=== PATIENT | female | born 1955 | race Caucasian/White ===

== ENCOUNTER 2018-01-26 06:38 | Emergency (ER) | payer MEDICAID, SELFPAY ==
[2018-01-26 06:39] VITALS: BP 168/56; PULSE 96; RESP 17; TEMP 36.6; O2SAT 96; BMI 17.4
--- NOTE | 2018-01-26 07:08 | CT_ITS ---
STUDY: CT ABDOMEN AND PELVIS WITHOUT CONTRAST REASON FOR EXAM: Female, 63 years old. Rectal bleeding with history of colon cancer RADIATION DOSAGE (If Supplied By Facility): CTDIvol = ( 6.10 ) mGy, DLP = ( 280.25 ) mGycm TECHNIQUE: Transaxial images were obtained from the dome of the diaphragm to the symphysis pubis without oral contrast, and without intravenous contrast. Sagittal and coronal images were reconstructed. Individualized dose optimization techniques were used for this CT. COMPARISON: None. FINDINGS: The lung bases demonstrate no evidence for consolidative process. Subtle wall thickening of the distal esophagus. Prominent pericardiac lymph nodes noted. There is nodularity in the omentum noted suggestive of omental caking with metastatic deposits. Scattered nodules in the mesentery also seen. Uncomplicated colonic diverticulosis. Small amount of free fluid in the pelvis. Postsurgical changes in the colonic loops with right-sided hemicolectomy The adrenal glands and the pancreas are grossly within normal limits. Heterogeneous density nodules overlying the liver capsule. The spleen appears unremarkable. Kidneys demonstrate no evidence for obstructing stones. Right-sided dobe-iu-yhhhxyvl hydronephrosis noted with changing caliber of the ureter proximally. Degenerative changes in the lumbar spine Small sclerotic density in the right iliac bone. Metastatic disease is a diagnostic consideration. Please consider nuclear medicine bone scan CT/Abdomen/Pelvis without Cont IMPRESSION: Status post right-sided hemicolectomy with multiple nodular densities in the omentum as well as the peritoneum suggestive of omental and peritoneal metastatic deposits. Mild to moderate right-sided hydronephrosis with mild dilatation of the proximal ureter. Extrinsic compression or with adhesions or adjacent vessel cannot be excluded. Nuclear medicine renal scan is suggested for assessment. Small sclerotic density in the right iliac bone possibly metastases. Electronically Signed: Royal Benítez, at 8:33 EST Tel , Service support ,
[2018-01-26] MEDS: 0.9% Normal Saline 1,000 ML 125 ML IV (07:20)
[2018-01-26 07:22] LABS: Absolute Lymphocyte Count 1.12 X10^3/ul (0.83-4.51); Absolute Neutrophil Count 5.2 X10^3/uL (2.0-7.7); Basophil# 0.05 X10^3/uL; Basophil% 0.7 % (0-1); Eosinophil# 0.12 X10^3/uL; Eosinophils% 1.7 % (0-5); Hematocrit 42.1 % (37-47); Hemoglobin 13.9 g/dl (12.0-15.0); Lymphocyte # 1.12 X10^3/ul (4.0); Lymphocyte % 15.4 % (19-41); Mean Corpuscular Hgb 30.8 pg (27.0-32.0); Mean Corpuscular Volume 93.3 fL (81-99); Mean Platelet Vol. 10.4 fl (6.2-12.0); Monocyte# 0.79 X10^3/uL; Monocyte% 10.9 % (0-10); Neutrophil # 5.17 X10^3/uL (2.7-7.7); Neutrophil % 71.2 % (47-70); POSITIVE COUNT NO; POSITIVE DIFFERENTIAL NO; POSITIVE MORPHOLOGY NO; Platelet Count 331 K/mm3 (150-450); RBC Distribution Width CV 12.8 % (11.6-14.6); RBC Distribution Width SD 43.2 fl (35.1-43.9); Red Blood Count 4.51 M/mm3 (4.2-5.4); White Blood Count 7.3 K/mm3 (4.4-11.0)
[2018-01-26 07:38] LABS: ALB/GLOB Ratio 0.8 RATIO (0.9-2.4); AST(SGOT) 21 U/L (15-37); Alanine Aminotransfer ALT/SGPT 25 U/L (13-56); Albumin, Serum 3.4 g/dL (3.2-5.0); Alkaline Phosphatase 229 U/L (45-117); Anion Gap 9 (5-15); BUN 16 mg/dL (7-18); BUN/Creat Ratio 17.1 RATIO (10-20); Calcium,Total 9.3 mg/dL (8.5-10.1); Chloride 104 mmol/L (98-107); Creatinine, Serum 0.94 mg/dL (0.55-1.02); EST Glomerular Filtration Rate 64 mL/min (>60); Est Glom Filt Rate - Afr Amer 77 mL/min (>60); Estimated Creatinine Clearance 51.07 ml/min; Globulin 4.1 g/dL (2.2-4.2); Glucose 98 mg/dL (74-106); Lipase 159 U/L (73-393); Potassium 3.8 mmol/L (3.5-5.1); Protein, Total 7.5 g/dL (6.4-8.2); Sodium Level 137 mmol/L (136-145)
[2018-01-26 07:43] LABS: Bacteria 0 SEEN /hpf (None Seen); Mucous, Urine 0 SEEN /hpf (<or=2+); White Blood Cells 0 SEEN /hpf (0-5)
[2018-01-26 07:45] LABS: Color, Urine Yellow (Yellow); Glucose, Dipstick Normal (Normal); Ketone-Dipstick Negative (Negative); Leukocyte Esterase-Dipstick 25 /ul (Negative); Nitrite-Dipstick Negative (Negative); Occult Blood-Urine 25 /ul (Negative); Protein-Dipstick Negative (Negative); Urine Bilirubin Dipstick Negative (Negative); Urine Clarity Clear (Clear); Urine Urobilinogen Normal (Normal); Urine pH 6.5 (5.0 - 8.0)
[2018-01-26 07:55] LABS: Red Blood Cells-Urine 0-5 SEEN /hpf (0-5); Squamous Epithelial Cells - UA 0-5 SEEN /hpf (5-10)
[2018-01-26 08:15] VITALS: BP 121/81; BP 138/68; BP 139/76; PULSE 78; PULSE 80; PULSE 82
--- NOTE | 2018-01-26 08:46 | ED.VISSUMM ---
- ER Visit Summary Date of Service: 01/26/18 Chief Complaint: [Rectal bleeding] History of Present Illness: The patient is a 63 F [presents to the emergency department with complaint of rectal bleeding that she noticed this morning. Patient states that she has had intermittent abdominal pain for about a week. Patient has a history of colon cancer with a right hemicolectomy that was performed in June of last year. Recently patient had a CAT scan of her abdomen and pelvis that was routine which showed suspected recurrence of her colon cancer with metastasis to her peritoneum. This morning patient states that she had a bowel movement and noticed that her stool was watery initially and then passed a hard stool which was accompanied by some blood and she noticed blood on the toilet paper when she wiped. Patient denies any fever. She denies any urinary symptoms. Patient not had any vomiting. Patient was feeling lightheaded or dizzy. Patient is scheduled to have a biopsy at [facility] next week of the peritoneal metastases.] Physical Examination: [HEENT-PERRLA, EOMI. Cranial nerves II through XII grossly intact. TMs clear. Mucous membranes moist. No adenopathy. Cardiovascular-regular rate and rhythm without murmur or ectopy Lungs-clear to auscultation, chest wall stable without crepitus or subcu emphysema Abdomen-normoactive bowel sounds, soft, patient has some tenderness over the epigastric region with some guarding. Patient has some mild diffuse tenderness throughout. There is no rebound, rigidity, or peritoneal signs. Rectal exam-no hemorrhoids or obvious fissures noted. No masses palpated in the rectal vault. Stool was brown. Extremities-intact ?4, normal range of motion, normal pulses, atraumatic] Test Results: [CBC with differential showed a white count of 7.3, hemoglobin 13.9, hematocrit 42, platelets 331. Chemistries are normal. LFTs unremarkable. Urinalysis was normal. CT scan of the abdomen and pelvis without contrast showed metastatic lesions to the peritoneum and omentum. Patient also with a lesion on her right iliac wing. Patient also noted to have a right mild to moderate hydro-nephrosis with possible extrinsic compression of the ureter. Orthostatic vital signs were negative. Hemoccult was positive.] Emergency Department Course and Treatment: [I will attempt to discuss case with Dr. Nash who is the patient's oncologist. I do not feel the patient needs admission at this time. I suspect patient may have had a small fissure due to the hard stool. Patient not currently on any blood thinners and she is hemodynamically stable therefore I feel she can be safely discharged home.] Treatment Plan: [Follow-up with oncology and follow-up for biopsy next week.] Disposition: [Discharged home in stable condition. Patient advised to return if persistent rectal bleeding, worsening abdominal pain, lightheadedness, or condition should worsen in any way.] Impression: [Lower GI bleed-stable Recurrent metastatic colon cancer] This note was generated with [employer] dictation software. It may contain incorrect words, spelling, and punctuation that were not noted in review of the chart prior to signing ED Disposition - Plan for ED Patient: Chief Complaint: GI Bleed Referrals: Aston Cruz DO [Primary Care Provider] -
--- NOTE | 2018-01-26 08:52 | ED.DEP ---
ED Disposition - Plan for ED Patient: Chief Complaint: GI Bleed Instructions: ED Hematochezia Stable Referrals: Aston Cruz DO [Primary Care Provider] - Loli Nash MD [STAFF PHYSICIAN] - 3-5 Days Richy Sahu MD [STAFF PHYSICIAN] - 3-5 Days
[2018-01-26 09:04] VITALS: BP 141/78; PULSE 87; RESP 16; O2SAT 98
== END 2018-01-26 09:05 | disposition home or self-care (01) ==
PROVIDERS: Emergency Provider Emergency Medicine; Family Provider Student in an Organized Health Care Education/Training Program; PCP Student in an Organized Health Care Education/Training Program
DX: K62.5 Hemorrhage of anus and rectum (principal); C18.9 Malignant neoplasm of colon, unspecified; C78.6 Secondary malignant neoplasm of retroperitoneum and peritoneum; I25.10 Atherosclerotic heart disease of native coronary artery without angina pectoris; R42 Dizziness and giddiness; I10 Essential (primary) hypertension; Z79.899 Other long term (current) drug therapy; Z90.49 Acquired absence of other specified parts of digestive tract; Z95.1 Presence of aortocoronary bypass graft
CPT/HCPCS: 74176; 80053; 81001; 82274; 83690; 85025; 96360; 96361; 99284; J7030; A4216

== ENCOUNTER → 2018-02-05 11:48 | Outpatient (CLI) | payer MEDICAID, SELFPAY ==
--- NOTE | 2018-02-05 11:49 | NM_ITS ---
CLINICAL: 63 year old female with reported history of right kidney hydronephrosis. 99m Tc MAG3 DIURETIC RENAL SCINTIGRAPHY COMPARISON: CT of the abdomen-pelvis report 01/31/2018 FINDINGS: Following the intravenous administration of 11.0 mCi of 99m Tc MAG3, renal images reveal: 1. The flow study demonstrates relatively symmetric arterial phase distribution of the radiopharmaceutical. 2. Immediate static delayed nephrogram images depict prompt, homogeneous tracer concentration by the renal parenchyma of the left and right kidneys. Collecting structure visualization is defined an approximately 3 minutes following tracer injection bilaterally. Washout of the radiopharmaceutical appears qualitatively normal and both kidneys with significant collecting system activity demonstrated in the bilateral renal units (R > L) during 20 minutes of pre-Lasix sequential image acquisition. 3. The nwogl-zy-ldrw ratio of total renal parenchymal function was calculated to be 53/47. Furosemide 10 mg was administered intravenously. The post Lasix T 1/2 washout of the left kidney collecting system activity was calculated to be < 10 minutes and > 20 minutes in the right kidney, (normal < 10 minutes). Analysis of the right kidney collecting system post Lasix time/activity curve demonstrates decreasing count statistics. NM/Renal Scan w/ Pharm Intervent IMPRESSION: 1. There is relative preservation of bilateral renal parenchymal, cortical function. 2. The left kidney collecting system demonstrates a normal physiologic response to induced diuresis. An abnormal response to Lasix administration is defined in the right kidney collecting system consistent with a component of mechanical and/or functional obstruction in the appropriate clinical context. Electronically Signed: Antonio Munguia DO at 12:52 EDT Tel , Service support ,
== END ==
PROVIDERS: Family Provider Student in an Organized Health Care Education/Training Program; PCP Student in an Organized Health Care Education/Training Program; Visit Provider Urology
DX: N13.30 Unspecified hydronephrosis (principal)
CPT/HCPCS: 78708; A9562; J1940

== ENCOUNTER 2018-02-08 05:14 | Day surgery (SDC) | payer MEDICAID, SELFPAY ==
[2018-02-08] VITALS (7 sets, daily range): BP systolic 108–135; BP diastolic 50–69; PULSE 80–95; RESP 14–16; TEMP 36.7–36.9; O2SAT 92–100; BMI 25.5
--- NOTE | 2018-02-08 06:44 | PCM.OPRPT ---
Problem List (1) Metastatic colon cancer in female Status: Acute Report of Operation Date of Procedure: 02/08/18 Pre-Operative Diagnosis: Metastatic colon cancer Post-Operative Diagnosis: Widely patent ileocolonic anastomosis with normal colonic mucosa Surgery/Procedure Performed:: Colonoscopy Description of Surgical Findings:: Timeout and informed consent was obtained. 63-year-old female was taken to the endoscopy suite. She was placed in a left lateral decubitus position. Throughout the procedure total of 75 mg Demerol and 2.5 mg of Versed were given as intravenous sedation. Digital rectal exam performed. Grade 3 internal hemorrhoids. No active bleeding. Flexible colonoscope inserted the rectum advanced to a slightly tortuous sigmoid colon. It was then readily advanced through the transverse colon. The ileocolonic anastomosis was encountered. This appeared to be absolutely widely patent. The scope was carefully withdrawn through the transverse colon descending colon and sigmoid colon. Bowel prep was excellent. Mucosal surfaces appear to be unremarkable. The scope was retroflexed within the rectum anorectal verge inspected hemorrhoidal changes noted photograph obtained. Excess fluid and air was aspirated free the procedure was completed with the patient tolerating it well no complications. Impression Patent ileocolonic anastomosis with no evidence for acute pathology. Internal hemorrhoids. Pending patient progress consider next colonoscopy in 3 years. This colonoscopy was prior to her laparoscopic right colectomy which was performed July 04, 2017 Cc: Dr. Cruz and Dr. Nash Medications were given at 0629. Scope was inserted 0631. The colonic anastomosis was reached at 0635.14. The procedure was completed at 0641.41 Richy Sahu M.D., F.A.C.S. Type of Anesthesia:: IV Sedation
== END 2018-02-08 07:30 | disposition home or self-care (01) ==
LOC: EN 05:15 → AC 05:17
PROVIDERS: Family Provider Student in an Organized Health Care Education/Training Program; PCP Student in an Organized Health Care Education/Training Program; Visit Provider Surgery
PROC: 0DJD8ZZ Inspection of Lower Intestinal Tract, Via Natural or Artificial Opening Endoscopic (ICD-10-PCS; CPT 45378; principal; 2018-02-08 06:25)
DX: C78.5 Secondary malignant neoplasm of large intestine and rectum (principal); K64.2 Third degree hemorrhoids; I25.10 Atherosclerotic heart disease of native coronary artery without angina pectoris; I10 Essential (primary) hypertension; E78.5 Hyperlipidemia, unspecified; Z78.0 Asymptomatic menopausal state; Z79.82 Long term (current) use of aspirin; Z79.899 Other long term (current) drug therapy; Z95.1 Presence of aortocoronary bypass graft; Z90.49 Acquired absence of other specified parts of digestive tract
CPT/HCPCS: 45378; J7120

== ENCOUNTER 2018-02-12 08:35 | Day surgery (SDC) | payer MEDICAID, SELFPAY ==
[2018-02-12] VITALS (7 sets, daily range): BP systolic 104–123; BP diastolic 46–74; PULSE 63–73; RESP 14–16; TEMP 36.3–36.8; O2SAT 100; BMI 25.2
[2018-02-12] MEDS: Cefazolin 2 GM in 0.9% Normal Saline 100 ML IV (10:49)
--- NOTE | 2018-02-12 11:01 | PCM.DC.GS ---
Discharge Diet: Light diet - advance as tolerated - if you have questions about your diet instructions, please talk to you doctor. Discharge Activity: May Not Drive - for 1 week or while taking narcotic pain medicine. May shower in (days): 1 Lifting Restrictions: 10 pounds Call your doctor if your incision/area has: Continuous Slow Oozing, Sudden Increased Bleeding, Increased Pain/ Swelling, Increased Redness, Foul Smelling Discharge Call your doctor if you observe: Fever of 101 or Higher Suture Line Care: Avoid Pulling/Pushing, Avoid Pinching/Bending Additional Dressing/Incision Instructions:: Change or remove dressing in 4 days. Leave steri-strips in place for 1 week. Allergies/Adverse Reactions: Allergies Iodinated Contrast- Oral and IV Dye [CONTRASTS] Allergy (Verified 02/11/18 11:17) Anaphylaxis nickel [Nickel] Allergy (Verified 02/11/18 11:17) Rash codeine Adverse Reaction (Verified 02/11/18 11:17) Nausea/Vom/Diarrhea Medications to take at Discharge Calcium Carbonate [Calcium] 60 mg PO BID 01/26/18 Metoprolol Succinate [Toprol Xl] 25 mg PO DAILY 01/26/18 Nitroglycerin [Nitrostat] 0.4 mg SUBLINGUAL Q5M PRN 01/26/18 [place]-3/Dha/Epa/Fish Oil [Fish Oil 500 mg Softgel] 1 ea PO DAILY 01/26/18 Simvastatin [Zocor] 40 mg PO QHS 01/26/18 aspirin 81 mg tablet,delayed release 81 mg PO QDAY tab 02/05/18 Sertraline HCl [Zoloft] 50 mg PO DAILY 02/08/18 Hydrocodone Bitart/Apap 5-325 [[place] 5MG-325MG] 1 tablet PO Q6H PRN PRN 3 Days #8 tablet 02/12/18 The following prescriptions were given: Hydrocodone Bitart/Apap 5-325 [[place] 5MG-325MG] 1 tablet PO Q6H PRN PRN 3 Days #8 tablet PRN Reason: Pain Primary Care Physician: Aston Cruz DO [Primary Care Provider] - Please Follow Up With: Richy Sahu MD - [phone] When: Office follow up may be as you need if there are any concerns
[2018-02-12] MEDS: Bupivacaine Mpf 0.5% 30 ML VIAL (11:15)
--- NOTE | 2018-02-12 11:38 | PCM.OPRPT ---
Problem List (1) Metastatic colon cancer in female Status: Acute Report of Operation Date of Procedure: 02/12/18 Pre-Operative Diagnosis: Metastatic colon cancer Post-Operative Diagnosis: Metastatic colon cancer Surgery/Procedure Performed:: Right internal jugular 6 Malagasy PowerPort placement Description of Surgical Findings:: 63-year-old female was taken out from placement table underwent monitored anesthesia care. Ancef 2 g given intravenous preoperatively. The right neck and chest were sterilely prepped draped. 1% lidocaine mixed 50-50 with 0.5% Marcaine was used as a local anesthetic. Throughout the procedure total of 13 cc was used. Under ultrasound guidance local was instilled then a micropuncture needle was inserted in the right internal jugular vein. Seldinger wire advancement. Local was instilled down upon the right chest. Transverse incision was created. Subtenons pocket was created. The tubing was tunneled from the chest to the neck site. Then the micropuncture sheath dilator was placed. I 035 J-wire was placed. Fluoroscopy demonstrated good position. The sheath dilator was inserted. The dilator wire removed. The catheter was advanced through the sheath. The sheath was split. The catheter was positioned so that the tip would be at the SVC atrial junction. The catheter was amputated connected the port secured there with port attachment. The port was placed in the pocket and secured there with interrupted 2-0 silk. The wound was closed with interrupted 3-0 Vicryl subdermal sutures. The neck was closed with interrupted 5-0 Vicryl. The port was accessed it aspirated easily and it was flushed with 2 cc of heparinized saline. Steri-Strips Telfa OpSite dressing applied. Sponge instrument and needle counts were reported to the surgeon to be correct. Blood loss minimal. Specimens none. Drains none. She was taken to the recovery room in satisfactory condition. Stat portable chest x-ray is pending. Richy Sahu M.D., F.A.C.S. Type of Anesthesia:: Local MAC Anesthesiologist: Quintin Chacon
--- NOTE | 2018-02-12 12:05 | RAD_ITS ---
STUDY: X-RAY CHEST REASON FOR EXAM: Female, 63 years old. Post port placement. TECHNIQUE: Single AP portable view of the chest. COMPARISON: Comparison is made with prior study dated March 04, 2017. FINDINGS: A right-sided portacatheter has been placed. The tip is at the junction of the superior vena cava and right atrium. EKG electrodes are seen. Mild increased markings at left lung base suggestive of a left basilar atelectasis and/or scarring. There is no demonstrated pleural abnormality. Sternal cerclage wires and vascular clips are present from a prior sternotomy and coronary artery bypass graft procedure (CABG). Normal mediastinum and zen. Normal visualized pulmonary arteries. Normal visualized aortic arch and descending thoracic aorta. Normal visualized thoracic spine. Normal visualized ribs, clavicles, and shoulders. There is no demonstrated abnormality of the visualized soft tissue structures of the upper abdomen. RAD/Chest 1 View (Portable) IMPRESSION: The tip of the right vianey catheter is at the junction of the superior vena cava and right atrium. Increased markings at the left lung base suggestive of early infiltrate and/or atelectasis. Electronically Signed: Sal Albrecht MD at 12:33 EDT Tel [phone], Service support ,
== END 2018-02-12 12:52 | disposition home or self-care (01) ==
LOC: SDC 08:36 → AC 08:37
PROVIDERS: Family Provider Student in an Organized Health Care Education/Training Program; PCP Student in an Organized Health Care Education/Training Program; Visit Provider Surgery
PROC: (CPT 36561; principal; 2018-02-12 11:00)
DX: Z45.2 Encounter for adjustment and management of vascular access device (principal); C80.1 Malignant (primary) neoplasm, unspecified; C78.5 Secondary malignant neoplasm of large intestine and rectum; F41.9 Anxiety disorder, unspecified; E78.00 Pure hypercholesterolemia, unspecified; Z95.1 Presence of aortocoronary bypass graft; I10 Essential (primary) hypertension; I25.2 Old myocardial infarction; Z79.82 Long term (current) use of aspirin; Z79.899 Other long term (current) drug therapy; E78.5 Hyperlipidemia, unspecified; I25.10 Atherosclerotic heart disease of native coronary artery without angina pectoris
CPT/HCPCS: 36561; 71045; 77001; J7120; C1788

== ENCOUNTER 2018-02-25 17:23 | Emergency (ER) | payer MEDICAID, SELFPAY ==
[2018-02-25 17:23] VITALS: BP 176/88; PULSE 109; RESP 16; TEMP 36.8; O2SAT 96; BMI 24.7
--- NOTE | 2018-02-25 19:51 | ED.DCSUM_ITS ---
- ER Visit Summary Date of Service: 02/25/18 Chief Complaint: Right eye blurry vision History of Present Illness: The patient is a 63 F with metastatic colon cancer who just had her first chemotherapy treatment today, including a Avastin, after her treatment and about an hour prior to arrival in the ED, she developed relatively sudden onset of blurred vision in the right eye only. She has no visual field cuts and no involvement of the left eye. She has no eye pain or headache or photophobia or foreign body sensation or floaters or flashes of light. If she covers her left eye, she can still see all of her peripheral vision, and everything is blurry throughout. Sent in by her oncologist for evaluation, who states this does not appear to be a typical side effect of her chemotherapy medications. She states that she wears no correction for her vision, just reading glasses as needed. No recent trauma/injury. Physical Examination: Well-appearing in no acute distress, normal neurologic exam. Hypertensive in the 160-170 range. Visual acuity is 20/40 OD 20/70 OS 20 /40 OU. Gross examination of her eyes is normal and symmetric. PERRLA, EOMI. I examined both eyes with slit-lamp, anterior chambers are normal, deep and quiet bilaterally, I see no cloudiness in the lens. Posterior segments are limited visualization due to miosis. Test Results: n/a Emergency Department Course and Treatment: Discussed with Dr. Garcia with ophthalmology, who agrees that this seems more likely to be an I/ophthalmologic problem, rather than a neurologic problem. He agrees that although the differential diagnosis includes retinal vein problems, vitreous hemorrhage which may or may not be related to the Avastin that she had, she has no symptoms of an emergency eye problem that would necessitate emergency ophthalmologic evaluation. He will see her in the morning and she will call for an appointment time. Treatment Plan: Ophthalmologic follow-up tomorrow Disposition: Discharge home Impression: Blurry vision OD History metastatic colon cancer This note was generated with [employer] dictation software. It may contain incorrect words, spelling, and punctuation that were not noted in review of the chart prior to signing ED Disposition - Plan for ED Patient: Disposition: Home or Assisted Living Chief Complaint: Eye Problem Instructions: ED Blurred Vision Referrals: Aston Cruz DO [Primary Care Provider] - Fredy Gilmore MD [STAFF PHYSICIAN] - (call at 7:30-8 am tomorrow for appt tomorrow for further eye evaluation)
[2018-02-25 20:15] VITALS: BP 139/60; PULSE 87; RESP 16; O2SAT 97
== END 2018-02-25 20:17 | disposition home or self-care (01) ==
PROVIDERS: Emergency Provider Emergency Medicine; Family Provider Student in an Organized Health Care Education/Training Program; PCP Student in an Organized Health Care Education/Training Program
DX: H53.8 Other visual disturbances (principal); C18.9 Malignant neoplasm of colon, unspecified; C79.9 Secondary malignant neoplasm of unspecified site; I10 Essential (primary) hypertension; Z79.82 Long term (current) use of aspirin; Z79.899 Other long term (current) drug therapy
CPT/HCPCS: 99283

== ENCOUNTER 2018-02-28 09:20 | Day surgery (SDC) | payer MEDICAID, SELFPAY ==
[2018-02-28] VITALS (11 sets, daily range): BP systolic 128–159; BP diastolic 55–73; PULSE 48–92; RESP 16; TEMP 36.3–36.9; O2SAT 100; BMI 24.6
[2018-02-28] MEDS: Lidocaine Jelly 2% 20 ML Syringe (URO-JET) 20 APPLIC (12:27)
--- NOTE | 2018-02-28 12:28 | DCINST_ITS ---
Discharge Diet: Light diet - advance as tolerated Discharge Activity: Return to Normal Activity Allergies/Adverse Reactions: Allergies Iodinated Contrast- Oral and IV Dye [CONTRASTS] Allergy (Verified 02/27/18 10:42 ) Anaphylaxis nickel [Nickel] Allergy (Verified 02/27/18 10:42) Rash codeine Adverse Reaction (Verified 02/27/18 10:42) Nausea/Vom/Diarrhea Medications to take at Discharge Calcium Carbonate [Calcium] 60 mg PO BID 01/26/18 Metoprolol Succinate [Toprol Xl] 25 mg PO DAILY 01/26/18 Nitroglycerin [Nitrostat] 0.4 mg SUBLINGUAL Q5M PRN 01/26/18 [place]-3/Dha/Epa/Fish Oil [Fish Oil 500 mg Softgel] 1 ea PO DAILY 01/26/18 Simvastatin [Zocor] 40 mg PO QHS 01/26/18 aspirin 81 mg tablet,delayed release 81 mg PO QDAY tab 02/05/18 Primary Care Physician: Aston Cruz DO [Primary Care Provider] - Please Follow Up With: Law Sidhu MD When: please call to make an appointment- 3 months
[2018-02-28] MEDS: Cefazolin 2 GM in 0.9% Normal Saline 100 ML IV (12:36)
--- NOTE | 2018-02-28 12:46 | PCM.OPRPT ---
Report of Operation Date of Procedure: 02/28/18 Pre-Operative Diagnosis: History of cancer and obstruction from enlarged lymph nodes and right hydronephrosis Post-Operative Diagnosis: same Surgery/Procedure Performed:: Cystoscopy right retrograde pyelogram and right stent placement Description of Surgical Findings:: 63-year-old female who is undergoing chemotherapy for advanced cancer and has obstruction of the right kidney we did a renal scan demonstrated decreased function and obstructed right kidney which is a normal left kidney. Because of the toxic chemotherapy the oncologist is asking to place a stent on the right side to maximize her kidney function. She is taken back to the operating room after smooth induction of general anesthesia she was placed supine on the table and then placed in dorsal lithotomy position the urethra and vaginal area were prepped and draped in usual sterile fashion went into the bladder with a 21 Telugu rigid cystourethroscope through the urethra and the entire length the urethra is normal the bladder was normal, the trigone was normal, identified the left and right ureteral orifice, cannulated the right ureteral orifice with a Glidewire and a Pollack catheter advanced the Pollack catheter of the kidney injected contrast she had a dilated right kidney with hydronephrosis, but a wire up in the right kidney over the wire advanced a stent a 6 Telugu by 24 cm stent once a stent was in good position pulled the wire the stent coiled in the kidney and bladder good position drain the bladder patient anesthetic was reversed and she will be taken to the PACU. I need to see her in the office in 3 months for another stent change. Type of Anesthesia:: General Drains: stent. - Admit VTE Documentation VTE Present on Admission: No VTE Mechan Device Prophylaxis: SCD's VTE Pharm Prophylaxis ordered?: No Reason prophylaxis not ordered:: Treatment Not Indicated
== END 2018-02-28 14:00 | disposition home or self-care (01) ==
LOC: SDC 09:22 → AC 09:24
PROVIDERS: Family Provider Student in an Organized Health Care Education/Training Program; PCP Student in an Organized Health Care Education/Training Program; Visit Provider Urology
PROC: (CPT 52332; principal; 2018-02-28 12:05)
DX: N13.1 Hydronephrosis with ureteral stricture, not elsewhere classified (principal); C18.9 Malignant neoplasm of colon, unspecified; K57.30 Diverticulosis of large intestine without perforation or abscess without bleeding; I25.10 Atherosclerotic heart disease of native coronary artery without angina pectoris; I10 Essential (primary) hypertension; E78.00 Pure hypercholesterolemia, unspecified; H91.90 Unspecified hearing loss, unspecified ear; Z79.82 Long term (current) use of aspirin; Z79.899 Other long term (current) drug therapy; Z78.0 Asymptomatic menopausal state; I25.2 Old myocardial infarction; Z95.1 Presence of aortocoronary bypass graft
CPT/HCPCS: 52005; 52332; 76000; J7120; A4216; C1769; C2617; J2405

== ENCOUNTER 2018-03-07 13:16 | Outpatient (RCR) | payer MEDICAID, SELFPAY | END 2018-03-25 23:59 | LOC: LABSPEC 13:16 | PROVIDERS: Family Provider Student in an Organized Health Care Education/Training Program; PCP Student in an Organized Health Care Education/Training Program; Visit Provider Internal Medicine Hematology & Oncology | DX: C18.2 Malignant neoplasm of ascending colon (principal); C78.6 Secondary malignant neoplasm of retroperitoneum and peritoneum ==

== ENCOUNTER 2018-03-11 15:10 | Observation (INO) | payer MEDICAID, SELFPAY ==
[2018-03-11 15:13] VITALS: BP 151/86; BP 167/58; PULSE 86; PULSE 95; RESP 14; TEMP 36.4; TEMP 36.6; O2SAT 100; BMI 25.2
--- NOTE | 2018-03-11 15:36 | CT_ITS ---
STUDY: CT BRAIN WITHOUT CONTRAST REASON FOR EXAM: Female, 63 years old. Numbness RADIATION DOSAGE (If Supplied By Facility): CTDIvol = ( 44.99 ) mGy, DLP = ( 745.49 ) mGycm TECHNIQUE: Transaxial CT imaging of the brain was performed without administration of intravenous contrast material. Individualized dose optimization techniques were used for this CT. COMPARISON: 03/04/2017 FINDINGS: There are stable postsurgical changes from a right occipital craniotomy with stable subjacent encephalomalacia. There is no acute bleed or infarct. There are normal white matter tracts. The ventricles are normal in configuration. There is no hydrocephalus. The visualized paranasal sinuses are clear. The mastoid air cells are well aerated. There is no skull fracture. CT/Brain/Head without Contrast IMPRESSION: No acute intracranial abnormality. Electronically Signed: Fredrick Figueroa, at 16:18 EDT Tel , Service support ,
--- NOTE | 2018-03-11 15:36 | EKG12_ITS ---
Test Reason : ALLERGIC REACTION Blood Pressure : / mmHG Vent. Rate : 086 BPM Atrial Rate : 086 BPM P-R Int : 176 ms QRS Dur : 126 ms QT Int : 412 ms P-R-T Axes : 068 079 063 degrees QTc Int : 493 ms Sinus rhythm with occasional Premature ventricular complexes Right bundle branch block Abnormal ECG Confirmed by DEDRICK ASNCHEZ ([id number]), material expeditor KARLY KELLEY ([id number]) on 03/14/2018 2:41:06 PM Referred By: SLIM Confirmed By:DEDRICK SANCHEZ
--- NOTE | 2018-03-11 15:40 | RAD_ITS ---
STUDY: X-RAY CHEST REASON FOR EXAM: Female, 63 years old. Bilateral upper and lower extremity numbness. Chemotherapy. TECHNIQUE: Single AP portable view of the chest. COMPARISON: Comparison is made with prior study dated February 12, 2018. FINDINGS: A right-sided portacatheter is seen with the tip in the midportion of the superior vena cava. EKG electrodes are seen. The lungs are clear and expanded. There is no demonstrated pleural abnormality. Sternal cerclage wires and vascular clips are present from a prior sternotomy and coronary artery bypass graft procedure (CABG). Normal mediastinum and zen. Normal visualized pulmonary arteries. Normal visualized aortic arch and descending thoracic aorta. Normal visualized thoracic spine. Normal visualized ribs, clavicles, and shoulders. There is no demonstrated abnormality of the visualized soft tissue structures of the upper abdomen. RAD/Chest 1 View (Portable) IMPRESSION: No acute abnormality is seen. Electronically Signed: Sal Albrecht MD at 15:56 EDT Tel [phone], Service support ,
[2018-03-11 16:14] LABS: Absolute Lymphocyte Count 0.26 X10^3/ul (0.83-4.51); Absolute Neutrophil Count 2.5 X10^3/uL (2.0-7.7); Basophil# 0.01 X10^3/uL; Basophil% 0.4 % (0-1); Hematocrit 39.1 % (37-47); Hemoglobin 13.4 g/dl (12.0-15.0); Lymphocyte # 0.26 X10^3/ul (4.0); Lymphocyte % 9.2 % (19-41); Mean Corp Hgb Conc 34.3 g/gl (32-36); Mean Corpuscular Hgb 31.1 pg (27.0-32.0); Mean Corpuscular Volume 90.7 fL (81-99); Mean Platelet Vol. 9.2 fl (6.2-12.0); Monocyte# 0.03 X10^3/uL; Monocyte% 1.1 % (0-10); Neutrophil # 2.52 X10^3/uL (2.7-7.7); Neutrophil % 89.3 % (47-70); Platelet Count 297 K/mm3 (150-450); RBC Distribution Width SD 39.9 fl (35.1-43.9); Red Blood Count 4.31 M/mm3 (4.2-5.4); White Blood Count 2.8 K/mm3 (4.4-11.0)
[2018-03-11 16:15] LABS: ALB/GLOB Ratio 0.8 RATIO (0.9-2.4); AST(SGOT) 27 U/L (15-37); Alanine Aminotransfer ALT/SGPT 42 U/L (13-56); Albumin, Serum 3.3 g/dL (3.2-5.0); Alkaline Phosphatase 234 U/L (45-117); Anion Gap 10 (5-15); BUN 10 mg/dL (7-18); BUN/Creat Ratio 11.2 RATIO (10-20); Calcium,Total 8.7 mg/dL (8.5-10.1); Chloride 111 mmol/L (98-107); Creatinine, Serum 0.89 mg/dL (0.55-1.02); Differential Indicated SCAN CRITERIA MET; EST Glomerular Filtration Rate 68 mL/min (>60); Est Glom Filt Rate - Afr Amer 82 mL/min (>60); Estimated Creatinine Clearance 53.43 ml/min; Globulin 3.9 g/dL (2.2-4.2); Glucose 115 mg/dL (74-106); POSITIVE COUNT NO; POSITIVE DIFFERENTIAL YES; POSITIVE MORPHOLOGY NO; Potassium 3.5 mmol/L (3.5-5.1); Protein, Total 7.2 g/dL (6.4-8.2); Sodium Level 143 mmol/L (136-145)
[2018-03-11 16:16] LABS: Phosphorus 2.4 mg/dL (2.5-4.9)
[2018-03-11 16:42] LABS: Bacteria 0 SEEN /hpf (None Seen); Mucous, Urine 0 SEEN /hpf (<or=2+)
[2018-03-11 16:47] LABS: Color, Urine Yellow (Yellow); Glucose, Dipstick Normal (Normal); Ketone-Dipstick Negative (Negative); Leukocyte Esterase-Dipstick Negative /ul (Negative); Nitrite-Dipstick Negative (Negative); Occult Blood-Urine 250 /ul (Negative); Protein-Dipstick Negative (Negative); Specific Gravity, Urine 1.005 (1.002-1.030); Urine Bilirubin Dipstick Negative (Negative); Urine Clarity Clear (Clear); Urine Urobilinogen Normal (Normal); Urine pH 6.5 (5.0 - 8.0)
[2018-03-11 16:53] VITALS: BP 132/100; PULSE 95; RESP 14; O2SAT 98
[2018-03-11 17:06] VITALS: BMI 25.3
[2018-03-11 17:10] LABS: Red Blood Cells-Urine 0-5 SEEN /hpf (0-5); Squamous Epithelial Cells - UA 0-5 SEEN /hpf (5-10); White Blood Cells 0 SEEN /hpf (0-5)
--- NOTE | 2018-03-11 17:55 | ED.DCSUM_ITS ---
- ER Visit Summary Date of Service: 03/11/18 Chief Complaint: Weakness History of Present Illness: The patient is a 63 F with a history of metastatic colon cancer. She also has a history of coronary disease hypertension hyperlipidemia. He was undergoing chemotherapy today. She developed numbness and tingling in both hands and generally felt weak all over. She was nauseated. She was also noted to be hypertensive. It was felt that this may be an allergic reaction so she was given IV steroid Pepcid and Benadryl. She had no improvement of symptoms. Therefore she was sent here for further workup. There is also concern for possible intracranial hemorrhage. She did not initially have a headache but does complain of a headache currently which is mild. Physical Examination: Afebrile blood pressure 167/58 Moist mucous membranes Heart regular rate and rhythm Lungs are clear Abdomen soft nondistended she has diffuse tenderness which is chronic per the patient and at baseline Patient has global weakness her total NIH stroke scale was 12 she has 1.4 right facial weakness but this is chronic related to her prior surgery. She scored 2 points on each extremity her weakness is global and symmetric. She was unable to touch her finger and appeared ataxic but this may have been just due to severe weakness. Test Results: Chest x-ray shows no acute process. Chest x-ray shows no acute process. EKG shows sinus rhythm at a rate of 86 with PVCs and right bundle branch block. White blood cell count 2.8. Laboratory studies otherwise essentially unremarkable. Emergency Department Course and Treatment: Patient was discussed with Dr. Nash. Her workup is unremarkable as far as diagnostic tests here. This may all be related to her chemotherapy. However she is severely weak. She would be unable to be discharged in her current condition. She was discussed with the hospitalist will be admitted. Treatment Plan: [] Disposition: Admit Impression: Weakness Paresthesias Metastatic colon cancer This note was generated with [employer] dictation software. It may contain incorrect words, spelling, and punctuation that were not noted in review of the chart prior to signing ED Disposition - Plan for ED Patient: Chief Complaint: Allergic Reaction Referrals: Aston Cruz DO [Primary Care Provider] -
--- NOTE | 2018-03-11 17:57 | NURSING ---
MED SURG OBS WEAKNESS, ADVERSE REACTION TO DRUG JARET
[2018-03-11 17:59] VITALS: BP 128/86; PULSE 89; RESP 14; O2SAT 99
[2018-03-11 18:33] VITALS: BMI 24.5
[2018-03-11 20:00] VITALS: BP 123/53; PULSE 86; RESP 18; TEMP 36.6; O2SAT 98
--- NOTE | 2018-03-11 20:10 | HP.PCM_ITS ---
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 (3) S/P cholecystectomy Status: Chronic (4) Colon cancer Status: Chronic (5) Syncope Status: Chronic (6) Status post coronary artery bypass graft Status: Chronic (7) CAD (coronary artery disease) Status: Chronic Comment: cabg x 3 2000 History of Present Illness Date of Admission: 03/11/18 Chief Complaint: Generalized weakness, numbness and tingling in both hands The patient is a 63 year old F with past medical history prostatic colon cancer was receiving chemotherapy today and suddenly developed nausea, numbness and tingling in both hands she also complained of generalized body weakness associated with difficulty walking, she was felt to have an adverse reaction to chemotherapeutic agent and she was sent to the emergency room for evaluation. CT scan of the brain did not show any acute intracranial process. Her chemistries were unremarkable and CBC showed mild leukopenia. Her oncologist Dr. Nash recommended the patient be observed in the hospital. When I saw the patient in the emergency room she was alert and oriented to time place and person, she reports that the numbness and tingling in her hands have now resolved, she reports generalized weakness and she has difficulty walking due to weakness. She reports reports no nausea ,vomiting or abdominal pain. 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 HTN (hypertension) (Chronic) Allergies Iodinated Contrast- Oral and IV Dye [CONTRASTS] Allergy (Verified 02/27/18 10:42 ) Anaphylaxis nickel [Nickel] Allergy (Verified 02/27/18 10:42) Rash codeine Adverse Reaction (Verified 02/27/18 10:42) Nausea/Vom/Diarrhea Home Medications: Ambulatory Orders Medication Instructions Recorded Calcium Carbonate [Calcium] 60 mg PO DAILY 01/26/18 Metoprolol Succinate [Toprol Xl] 25 mg PO DAILY 01/26/18 Nitroglycerin [Nitrostat] 0.4 mg SUBLINGUAL Q5M PRN 01/26/18 Simvastatin [Zocor] 40 mg PO QHS 01/26/18 aspirin 81 mg tablet,delayed 81 mg PO DAILY tab 02/05/18 release Ibuprofen [Advil] 200 mg PO Q4H PRN PRN 03/11/18 Loperamide HCl [Imodium A-D] 2 mg PO PRN PRN 03/11/18 Sertraline HCl [Zoloft] 50 mg PO DAILY 03/11/18 proCHLORPERazine tablet [Compazine 10 mg PO Q6H PRN PRN 03/11/18 tablet] Surgical History: cholecystectomy, coronary bypass surgery Psychiatric History: No pertinent psych hx 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: No pertinent 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 TREATMENT 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/ART THERAPIST history Smoking Status: Never smoker - *Family History Maternal History Items: No pertinent history Paternal History Items: No pertinent history Review of Systems Constitutional: Reports: Anorexia VTE Information - Inpt Only VTE Present on Admission: Yes VTE Mechan Device Prophylaxis: SCD's VTE Pharm Prophylaxis ordered?: Yes - Physical Exam General: Alert, Oriented x3 Lungs: Clear to auscultation Cardiovascular: Regular rate, Normal S1, Normal S2 Abdomen: Bowel Sounds Present Lymphatic: No Cervical, Supraclavicular, or Inguinal Adenopathy Neurological: Cranial nerves II-XII grossly intact Psych/Mental Status: Normal Affect Vital Signs Temp Pulse Resp BP Pulse Ox 97.8 F 89 14 128/86 H 99 03/11/18 15:13 03/11/18 17:59 03/11/18 17:59 03/11/18 17:59 03/11/18 17:59 Oxygen Delivery Method Room Air Weight: 51.398 kg Body Mass Index (BMI) 24.5 Assessment/Plan 1. Adverse reaction to chemotherapeutic agent; symptoms have resolved and will continue to monitor her closely. 2. Generalized weakness to medical illness; will obtain TSH, cortisol level, PT /OT 3. Ambulatory dysfunction due to #2; PT/OT as above. 4. Colon cancer currently undergoing chemotherapy; the patient will follow up with Dr. Nash after she is discharged from the hospital. 5. Leukopenia ; repeat CBC in a.m. 6. Coronary Artery disease; the patient reports no symptoms of angina or heart failure at this time. We will continue her cardioprotective medications. 7. advanced directives and goals of care discussed; the patient wants to be Full Code and wants everything done at this point. 8. DVT prophylaxis with subcutaneous heparin and SCDs. Code Visit OBSV E&M: 00833 Initial observation care L3
[2018-03-11] MEDS: Ibuprofen 200 MG Tablet PO (21:46)
[2018-03-11] MEDS: Atorvastatin Calcium 20 MG Tablet PO (21:47)
[2018-03-12] VITALS (13 sets, daily range): BP systolic 115–147; BP diastolic 50–77; PULSE 60–98; RESP 16–18; TEMP 36.4–37.2; O2SAT 96–100
--- NOTE | 2018-03-12 02:20 | EKG12_ITS ---
Test Reason : PALPITATIONS Blood Pressure : / mmHG Vent. Rate : 083 BPM Atrial Rate : 083 BPM P-R Int : 184 ms QRS Dur : 114 ms QT Int : 420 ms P-R-T Axes : 064 070 041 degrees QTc Int : 493 ms Sinus rhythm with frequent Premature ventricular complexes Right bundle branch block Abnormal ECG Confirmed by EMELINA RODRIGUEZ, ONESIMO ([id number]), assignment desk editor KARLY KELLEY ([id number]) on 03/21/2018 1:55:41 PM Referred By: WAGNER Confirmed By:ONESIMO TARANGO MD
--- NOTE | 2018-03-12 02:23 | NURSING ---
Pt reported to MARY Rosa that she was not feeling right. Nurse checked on patient, she was complaining of heart pounding, and feeling shaky and not feeling right. BP 147/50, pulse 85, temp 97.6, respirations 16/min, 96% on r/a. Blood sugar 104. Called Dr. Tavares, he ordered stat EKG, and to be placed on telemetry. Noted heart beat was pounding and heart rate was slightly irregular. Pt stated she has had FL, and CABG x3 in the past.
[2018-03-12] MEDS: Ibuprofen 200 MG Tablet PO (02:36)
[2018-03-12 03:36] LABS: Bedside Glucose 104 mg/dL (70-110)
[2018-03-12 05:08] LABS: Absolute Lymphocyte Count 0.32 X10^3/ul (0.83-4.51); Absolute Neutrophil Count 3.8 X10^3/uL (2.0-7.7); Basophil# 0.03 X10^3/uL; Basophil% 0.6 % (0-1); Differential Indicated SCAN CRITERIA MET; Eosinophil# 0.03 X10^3/uL; Eosinophils% 0.6 % (0-5); Hematocrit 36.2 % (37-47); Hemoglobin 12.4 g/dl (12.0-15.0); Lymphocyte # 0.32 X10^3/ul (4.0); Lymphocyte % 6.4 % (19-41); Mean Corp Hgb Conc 34.3 g/gl (32-36); Mean Corpuscular Hgb 31.3 pg (27.0-32.0); Mean Corpuscular Volume 91.4 fL (81-99); Mean Platelet Vol. 9.3 fl (6.2-12.0); Monocyte# 0.83 X10^3/uL; Monocyte% 16.5 % (0-10); Neutrophil # 3.81 X10^3/uL (2.7-7.7); Neutrophil % 75.7 % (47-70); POSITIVE COUNT NO; POSITIVE DIFFERENTIAL YES; POSITIVE MORPHOLOGY NO; Platelet Count 270 K/mm3 (150-450); RBC Distribution Width CV 13.2 % (11.6-14.6); RBC Distribution Width SD 39.9 fl (35.1-43.9); Red Blood Count 3.96 M/mm3 (4.2-5.4)
[2018-03-12 05:19] LABS: Anion Gap 8 (5-15); BUN 12 mg/dL (7-18); Calcium,Total 8.8 mg/dL (8.5-10.1); Chloride 109 mmol/L (98-107); Creatinine, Serum 0.93 mg/dL (0.55-1.02); EST Glomerular Filtration Rate 65 mL/min (>60); Est Glom Filt Rate - Afr Amer 78 mL/min (>60); Estimated Creatinine Clearance 49.59 ml/min; Glucose 102 mg/dL (74-106); Potassium 4.1 mmol/L (3.5-5.1); Sodium Level 141 mmol/L (136-145)
[2018-03-12 05:59] LABS: Differential Comment SCANNED
[2018-03-12] MEDS: Aspirin E.C. 81 MG Tablet PO (07:45)
--- NOTE | 2018-03-12 09:06 | PCM.PN.HOSP ---
Subjective: weakness resolved. That she did experience some palpitations roughly around 1 AM while she was feeling weak but that has resolved. Patient denied any chest pain. Patient denies any symptoms like this in the past. Vitals/I&O's: Vital Signs Temp Pulse Resp BP Pulse Ox 37.2 C 75 18 117/77 99 03/12/18 07:41 03/12/18 07:41 03/12/18 07:41 03/12/18 07:41 03/12/18 07:41 Oxygen Delivery Method Room Air Weight: 51.398 kg Body Mass Index (BMI) 24.5 Intake and Output for Last 24 Hours 03/10/18 03/11/18 03/12/18 23:59 23:59 23:59 Intake Total 450 / 450 Output Total 350 / 350 450 / 450 Balance -350 / -350 0 / 0 General: Alert HEENT: Atraumatic, Normocephalic Neck: No Nodes, Thyroid Normal Size and Texture Lungs: Clear to auscultation, Normal air movement, No rhonchi, No wheeze Cardiovascular: Regular rate, Regular Rhythm, Normal S1, Normal S2, No murmurs Abdomen: Bowel Sounds Present, Soft, Non Tender, Non-Distended, No Hepato-splenomegaly Extremities: No edema, No Calf Tenderness Psych/Mental Status: Normal Affect, Appropriate Laboratory Results 03/12/18 02:14: POC Glucose 104 03/12/18 04:57: WBC 5.0, RBC 3.96 L, Hgb 12.4, Hct 36.2 L, MCV 91.4, MCH 31.3, MCHC 34.3, RDW 13.2, RDW Differential 39.9, Plt Count 270, MPV 9.3, Immature Gran % (Auto) 0.200, Neut % (Auto) 75.7 H, Lymph % (Auto) 6.4 L, [place] % (Auto) 16.5 H, Eos % (Auto) 0.6, Baso % (Auto) 0.6, Absolute Neuts (auto) 3.8, Absolute Lymphs (auto) 0.32 L, Total Counted Not Reportable, Differential Comment SCANNED 03/12/18 04:57: Sodium 141, Potassium 4.1, Chloride 109 H, Carbon Dioxide 24.0, Anion Gap 8, BUN 12, Creatinine 0.93, Estim Creat Clear Calc 49.59, Est GFR (MDRD) Af Amer 78, Est GFR (MDRD) Non-Af 65, BUN/Creatinine Ratio 13.0, Glucose 102, Calcium 8.8 Current Medications Aspirin (Ecotrin) 81 mg PO DAILY@0800 [facility] Last Admin: 03/12/18 07:45 Dose: 81 mg Atorvastatin Calcium (Lipitor) 20 mg PO QHS [facility] Last Admin: 03/11/18 21:47 Dose: 20 mg Calcium Carbonate (Tums) 500 mg PO DAILY [facility] Heparin Sodium (Beef Lung) (Heparin 500 Unit/5 Ml (100/Ml)) 500 unit IV UD PRN PRN Reason: HEPARIN FLUSH Ibuprofen (Motrin) 200 mg PO Q4H PRN PRN PRN Reason: PAIN Last Admin: 03/12/18 02:36 Dose: 200 mg Loperamide HCl (Imodium) 2 mg PO PRN PRN PRN Reason: Diarrhea Magnesium Hydroxide (Milk Of Magnesia) 30 ml PO DAILY PRN PRN PRN Reason: Constipation Metoprolol Succinate (Toprol Xl (Beta Wojciech)) 25 mg PO DAILY [facility] Nitroglycerin (Nitrostat) 0.4 mg SUBLINGUAL Q5M PRN PRN Reason: Chest Pain Prochlorperazine Maleate (Compazine Tablet) 10 mg PO Q6H PRN PRN PRN Reason: NAUSEA Sertraline HCl (Zoloft) 50 mg PO DAILY [facility] Sodium Chloride () 10 ml IV UD PRN PRN Reason: VAD FLUSH Medical Necessity - Tobacco Use Smoking Status: Never smoker Assessment/Plan 1. Weakness Secondary to chemotherapy Improved 2. Palpitations No chest pain Oncology talked the patient and told her that she is going to have a stress test before talking to me about it. I am not worried for cardiac equivalent but I feel that patient was experiencing this with her being fatigued. Patient is having some PVCs but are currently asymptomatic. Will order a stress test as patient was already under the assumption she was going to have it performed because of the conversation she had had with Dr. Nash 3. Colon cancer Chemotherapy and goals of care will need to be discussed with oncology. Code Visit OBSV E&M: 14830 Subsequent observation care L2
--- NOTE | 2018-03-12 09:10 | PN_ITS ---
Subjective: weakness resolved. That she did experience some palpitations roughly around 1 AM while she was feeling weak but that has resolved. Patient denied any chest pain. Patient denies any symptoms like this in the past. Vitals/I&O's: Vital Signs Temp Pulse Resp BP Pulse Ox 37.2 C 75 18 117/77 99 03/12/18 07:41 03/12/18 07:41 03/12/18 07:41 03/12/18 07:41 03/12/18 07:41 Oxygen Delivery Method Room Air Weight: 51.398 kg Body Mass Index (BMI) 24.5 Intake and Output for Last 24 Hours 03/10/18 03/11/18 03/12/18 23:59 23:59 23:59 Intake Total 450 / 450 Output Total 350 / 350 450 / 450 Balance -350 / -350 0 / 0 General: Alert HEENT: Atraumatic, Normocephalic Neck: No Nodes, Thyroid Normal Size and Texture Lungs: Clear to auscultation, Normal air movement, No rhonchi, No wheeze Cardiovascular: Regular rate, Regular Rhythm, Normal S1, Normal S2, No murmurs Abdomen: Bowel Sounds Present, Soft, Non Tender, Non-Distended, No Hepato- splenomegaly Extremities: No edema, No Calf Tenderness Psych/Mental Status: Normal Affect, Appropriate Laboratory Results 03/12/18 02:14: POC Glucose 104 03/12/18 04:57: WBC 5.0, RBC 3.96 L, Hgb 12.4, Hct 36.2 L, MCV 91.4, MCH 31.3, MCHC 34.3, RDW 13.2, RDW Differential 39.9, Plt Count 270, MPV 9.3, Immature Gran % (Auto) 0.200, Neut % (Auto) 75.7 H, Lymph % (Auto) 6.4 L, [place] % (Auto) 16.5 H, Eos % (Auto) 0.6, Baso % (Auto) 0.6, Absolute Neuts (auto) 3.8, Absolute Lymphs (auto) 0.32 L, Total Counted Not Reportable, Differential Comment SCANNED 03/12/18 04:57: Sodium 141, Potassium 4.1, Chloride 109 H, Carbon Dioxide 24.0, Anion Gap 8, BUN 12, Creatinine 0.93, Estim Creat Clear Calc 49.59, Est GFR ( MDRD) Af Amer 78, Est GFR (MDRD) Non-Af 65, BUN/Creatinine Ratio 13.0, Glucose 102, Calcium 8.8 Current Medications Aspirin (Ecotrin) 81 mg PO DAILY@0800 [facility] Last Admin: 03/12/18 07:45 Dose: 81 mg Atorvastatin Calcium (Lipitor) 20 mg PO QHS [facility] Last Admin: 03/11/18 21:47 Dose: 20 mg Calcium Carbonate (Tums) 500 mg PO DAILY [facility] Heparin Sodium (Beef Lung) (Heparin 500 Unit/5 Ml (100/Ml)) 500 unit IV UD PRN PRN Reason: HEPARIN FLUSH Ibuprofen (Motrin) 200 mg PO Q4H PRN PRN PRN Reason: PAIN Last Admin: 03/12/18 02:36 Dose: 200 mg Loperamide HCl (Imodium) 2 mg PO PRN PRN PRN Reason: Diarrhea Magnesium Hydroxide (Milk Of Magnesia) 30 ml PO DAILY PRN PRN PRN Reason: Constipation Metoprolol Succinate (Toprol Xl (Beta Wojciech)) 25 mg PO DAILY [facility] Nitroglycerin (Nitrostat) 0.4 mg SUBLINGUAL Q5M PRN PRN Reason: Chest Pain Prochlorperazine Maleate (Compazine Tablet) 10 mg PO Q6H PRN PRN PRN Reason: NAUSEA Sertraline HCl (Zoloft) 50 mg PO DAILY [facility] Sodium Chloride () 10 ml IV UD PRN PRN Reason: VAD FLUSH Medical Necessity - Tobacco Use Smoking Status: Never smoker Assessment/Plan 1. Weakness * Secondary to chemotherapy * Improved 2. Palpitations * No chest pain * Oncology talked the patient and told her that she is going to have a stress test before talking to me about it. * I am not worried for cardiac equivalent but I feel that patient was experiencing this with her being fatigued. Patient is having some PVCs but are currently asymptomatic. * Will order a stress test as patient was already under the assumption she was going to have it performed because of the conversation she had had with Dr. Nash 3. Colon cancer * Chemotherapy and goals of care will need to be discussed with oncology. Code Visit OBSV E&M: 90405 Subsequent observation care L2
[2018-03-12 10:05] LABS: Pathologist Review Reviewed
[2018-03-12] MEDS: Metoprolol(XL)Succ 25 MG Tablet PO (11:16)
[2018-03-12] MEDS: Calcium Carbonate 500 MG Tablet PO (11:16)
[2018-03-12] MEDS: Sertraline 50 MG Tablet PO (11:16)
--- NOTE | 2018-03-12 12:26 | CHAPLAIN ---
Type of Pastoral Visit _x__ Initial Visit ___ Follow-up Visit ___ On-call Visit ___ General Patient Visit ___ Spiritual Assessment ___ Family Conference ___ Bereavement ___ Rapid Response ___ Code Blue ___ Other (describe below) Pastoral Care Referral From _x__ Patient ___ Family ___ Nurse ___ Physician ___ Signing Teacher ___ Manager Of Business Operations ___ Other (describe below) Sacrament/Intervention _x__ Active listening ___ Anointing ___ Baptist ___ Bereavement ___ Communion ___ Melissa exploration ___ ___ Life review _x__ Prayer ___ Reconciliation ___ Sacrament of Sick _x__ Supportive presence ___ Wedding ___ Other (describe below) Pastoral Comments spouse and son are also with patient
[2018-03-12] MEDS: Atorvastatin Calcium 20 MG Tablet PO (20:55)
[2018-03-13 03:00] VITALS: BP 126/49; PULSE 66; PULSE 70; RESP 16; TEMP 36.3; O2SAT 96
[2018-03-13 06:23] LABS: Anion Gap 10 (5-15); BUN 19 mg/dL (7-18); BUN/Creat Ratio 18.8 RATIO (10-20); Calcium,Total 8.5 mg/dL (8.5-10.1); Chloride 109 mmol/L (98-107); Creatinine, Serum 1.01 mg/dL (0.55-1.02); EST Glomerular Filtration Rate 59 mL/min (>60); Est Glom Filt Rate - Afr Amer 71 mL/min (>60); Estimated Creatinine Clearance 45.66 ml/min; Glucose 80 mg/dL (74-106); Potassium 3.9 mmol/L (3.5-5.1); Sodium Level 142 mmol/L (136-145)
--- NOTE | 2018-03-13 06:47 | NURSING ---
Pt had concerns about being allergic to iodinated contrast and having the nuclear med test. Spoke to [facility] and said he had conducted a renal test recently that used the same IV injection as the stress test. Pt had tolerated fine with it. Kj thought patient would have test at 9:00am, notified patient and family of same.
[2018-03-13 06:56] LABS: Absolute Lymphocyte Count 0.51 X10^3/ul (0.83-4.51); Absolute Neutrophil Count 1.3 X10^3/uL (2.0-7.7); Basophil# 0.04 X10^3/uL; Basophil% 1.2 % (0-1); Eosinophil# 0.38 X10^3/uL; Eosinophils% 11.7 % (0-5); Hematocrit 37.1 % (37-47); Hemoglobin 12.3 g/dl (12.0-15.0); Lymphocyte # 0.51 X10^3/ul (4.0); Lymphocyte % 15.6 % (19-41); Mean Corp Hgb Conc 33.2 g/gl (32-36); Mean Corpuscular Volume 93.5 fL (81-99); Mean Platelet Vol. 9.6 fl (6.2-12.0); Monocyte# 0.98 X10^3/uL; Monocyte% 30.1 % (0-10); Neutrophil # 1.34 X10^3/uL (2.7-7.7); Neutrophil % 41.1 % (47-70); Platelet Count 257 K/mm3 (150-450); RBC Distribution Width CV 13.7 % (11.6-14.6); RBC Distribution Width SD 42.2 fl (35.1-43.9); Red Blood Count 3.97 M/mm3 (4.2-5.4); White Blood Count 3.3 K/mm3 (4.4-11.0)
[2018-03-13 06:58] LABS: Differential Indicated SCAN CRITERIA MET; POSITIVE COUNT NO; POSITIVE DIFFERENTIAL YES; POSITIVE MORPHOLOGY NO
[2018-03-13 07:18] LABS: Differential Comment SCANNED
[2018-03-13 07:30] VITALS: PULSE 71
[2018-03-13 08:15] VITALS: BP 132/60; PULSE 72; RESP 18; TEMP 37; O2SAT 100
[2018-03-13] MEDS: Aspirin E.C. 81 MG Tablet PO (08:16)
[2018-03-13] MEDS: Calcium Carbonate 500 MG Tablet PO (11:53)
[2018-03-13] MEDS: Sertraline 50 MG Tablet PO (11:54)
[2018-03-13 12:00] VITALS: PULSE 70
--- NOTE | 2018-03-13 13:00 | STRESSREP ---
Stress Test Report Pharmacologic myocardial perfusion stress test. 63-year-old lady with a history of chest pain. Stress protocol: Resting EKG demonstrates normal sinus rhythm with a right bundle branch block a rate of 71 bpm is noted resting blood pressure is 148/90 mmHg. 0.4 mg of regadenoson was infused per usual protocol followed by Intravenous saline flush injection continuous EKG monitoring was performed. The patient maintained sinus rhythm throughout the recording with occasional premature ventricular complexes and then subsequent ventricular bigeminy. The patient subsequently became vasovagal and dropped her blood pressure to 80 mmHg systolic. She did have some nausea and vomiting. After intravenous fluids her blood pressure and heart rate recovered final blood pressure was 130/42 mmHg. Myocardial perfusion protocol. 11.1 mCi of technetium 99m sestamibi was injected at rest. 0.4 mg of regadenoson was infused per usual protocol peak infusion 31.7 mCi of technetium 99m sestamibi was injected stress images were obtained stress and rest images were reconstructed and compared in the short axis vertical long and horizontal long axis. Gated images were also obtained. Perfusion SPECT analysis: Review of the stress images demonstrate normal uptake of tracer noted in all areas of the myocardium the resting images similarly demonstrate normal uptake of tracer noted in all areas myocardium. No areas of reversibility are noted suggest ischemia no previous infarct is noted. Gated SPECT analysis: The gated ejection fraction is noted to be over 80%. Conclusion: Normal pharmacologic myocardial perfusion stress test. Preserved ejection fraction.
--- NOTE | 2018-03-13 13:33 | DCINST_ITS ---
You will use the following diet at home:: No restrictions Your food should be the consistency of: Regular Your liquids should be the consistency of: Regular/Thin Discharge Activity: Return to Normal Activity Call your doctor if you observe: Fever of 101 or Higher, Shortness of breath, Fainting spells, Chest pain Allergies/Adverse Reactions: Allergies Iodinated Contrast- Oral and IV Dye [CONTRASTS] Allergy (Verified 02/27/18 10:42 ) Anaphylaxis nickel [Nickel] Allergy (Verified 02/27/18 10:42) Rash codeine Adverse Reaction (Verified 02/27/18 10:42) Nausea/Vom/Diarrhea Medications to take at Discharge Calcium Carbonate [Calcium] 600 mg PO DAILY 01/26/18 Metoprolol Succinate [Toprol Xl] 25 mg PO DAILY 01/26/18 Nitroglycerin [Nitrostat] 0.4 mg SUBLINGUAL Q5M PRN 01/26/18 Simvastatin [Zocor] 40 mg PO QHS 01/26/18 aspirin 81 mg tablet,delayed release 81 mg PO DAILY tab 02/05/18 Ibuprofen [Motrin] 200 mg PO Q4H PRN PRN 03/11/18 Loperamide HCl [Imodium A-D] 2 mg PO PRN PRN 03/11/18 Sertraline HCl [Zoloft] 50 mg PO DAILY 03/11/18 proCHLORPERazine tablet [Compazine tablet] 10 mg PO Q6H PRN PRN 03/11/18 Primary Care Physician: Aston Cruz DO [Primary Care Provider] - Within 2 Weeks Please Follow Up With: Loli Nash MD When: 1 week Proposed Discharge Date: 03/13/18
--- NOTE | 2018-03-13 13:33 | PCM.DC.SUM ---
Discharge Date and Diagnosis - Problem List Patient Problems: Active and Suspected Problems (Last Updated 02/05/18 @ 15:48 by Alda Medrano) Palpitations (Acute) Syncope (Acute) Date of Admission: 03/11/18 Date of Discharge: 03/13/18 - Primary Discharge Diagnosis Active and Suspected Problems (Last Updated 02/05/18 @ 15:48 by Alda Medrano) Palpitations (Acute) Syncope (Acute) - Secondary Discharge Diagnosis Chronic Problems (Last Updated 02/05/18 @ 15:48 by Alda Medrano) Metastatic colon cancer in female (Chronic) History of excision of tumor of brain meninges (Chronic) S/P cholecystectomy (Chronic) Colon cancer (Chronic) Hyperlipidemia (Chronic) Status post coronary artery bypass graft (Chronic) CAD (coronary artery disease) (Chronic) cabg x 3 2000 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 Electronically Signed: Fredrick Figueroa at 16:18 EDT Tel , Service support , Chest X-Ray 03/11/18 15:40 IMPRESSION: No acute abnormality is seen. Electronically Signed: Sal Albrecht MD at 15:56 EDT Tel [phone], Service support , Operations: colectomy - Laparoscopic right hemicolectomy Procedures: Stress test Summary of Care Provided: The patient is a 63 year old F is with weakness and syncope. Patient is undergoing chemotherapy with oxaliplatin and shortly afterwards started having the symptoms. Patient had some nausea and vomiting and had a syncopal episode. Patient's weakness did improve and patient was otherwise feeling well. It was noted on the telemetry that the patient was having PVCs. Patient did have some palpitations when she was feeling ill but denied in her ever having chest pain. Patient had a courtesy visit with her oncologist who told her that she was going to have a stress test. This conversation took place without formally discussing that with me before this was brought to her attention. I did a stress test just because her oncologist told her she was having it even though I did not feel that it was indicated. Stress test was performed today and was negative. Patient is being discharged home today. [] Discharge Diet: No Restrictions Discharge Activity: Return to Normal Activity Call your doctor if you observe: Fever of 101 or Higher, Shortness of breath, Fainting spells, Chest pain Home Medications: Medications to take at Discharge Calcium Carbonate [Calcium] 600 mg PO DAILY 01/26/18 Metoprolol Succinate [Toprol Xl] 25 mg PO DAILY 01/26/18 Nitroglycerin [Nitrostat] 0.4 mg SUBLINGUAL Q5M PRN 01/26/18 Simvastatin [Zocor] 40 mg PO QHS 01/26/18 aspirin 81 mg tablet,delayed release 81 mg PO DAILY tab 02/05/18 Ibuprofen [Motrin] 200 mg PO Q4H PRN PRN 03/11/18 Loperamide HCl [Imodium A-D] 2 mg PO PRN PRN 03/11/18 Sertraline HCl [Zoloft] 50 mg PO DAILY 03/11/18 proCHLORPERazine tablet [Compazine tablet] 10 mg PO Q6H PRN PRN 03/11/18 Primary Care Physician: Aston Cruz DO [Primary Care Provider] - Within 2 Weeks Please Follow Up With: Loli Nash MD When: 1 week Disposition: Home Minutes spent on discharge:: 24 Patient Condition:: Good Medical Necessity - Tobacco Use Smoking Status: Never smoker Meaningful Use Info Meaningful Use Diagnoses (Choose all that apply): None applicable Code Visit OBSV E&M: 01440 Observation care discharge
[2018-03-13] MEDS: Ibuprofen 200 MG Tablet PO (14:42)
[2018-03-13 14:44] LABS: Pathologist Review Reviewed
[2018-03-13 14:46] VITALS: BP 115/91; PULSE 72
[2018-03-13] MEDS: Metoprolol(XL)Succ 25 MG Tablet PO (14:46)
[2018-03-13] MEDS: 0.9% NaCl VAD Flush 10 ML IV (14:47)
[2018-03-13 15:31] VITALS: BP 115/91; PULSE 72; RESP 18; TEMP 36.9; O2SAT 100
== END 2018-03-13 15:30 | disposition home or self-care (01) ==
LOC: ED 15:43 → MS2 18:22
PROVIDERS: Admitting Provider Internal Medicine; Emergency Provider Emergency Medicine; Family Provider Student in an Organized Health Care Education/Training Program; PCP Student in an Organized Health Care Education/Training Program
DX: R55 Syncope and collapse (principal); R00.2 Palpitations; I25.10 Atherosclerotic heart disease of native coronary artery without angina pectoris; Z95.1 Presence of aortocoronary bypass graft; I10 Essential (primary) hypertension; E78.5 Hyperlipidemia, unspecified; C18.9 Malignant neoplasm of colon, unspecified; C79.9 Secondary malignant neoplasm of unspecified site; I49.3 Ventricular premature depolarization; R94.31 Abnormal electrocardiogram [ECG] [EKG]; R20.0 Anesthesia of skin; D72.819 Decreased white blood cell count, unspecified; Z79.899 Other long term (current) drug therapy; Z79.82 Long term (current) use of aspirin
CPT/HCPCS: 36415; 36591; 70450; 71045; 78452; 80048; 80053; 81001; 82962; 83735; 84100; 84484; 85025; 93005; 93017; 99218; 99284; A9500; J7030; A4216; G0378; J2785

== ENCOUNTER 2018-06-07 07:19 | Day surgery (SDC) | payer MEDICAID, SELFPAY ==
[2018-06-07] VITALS (9 sets, daily range): BP systolic 85–125; BP diastolic 44–53; PULSE 65–77; RESP 14–16; TEMP 35.9–36.6; O2SAT 100; BMI 23.5
[2018-06-07] MEDS: Cefazolin 2 GM in 0.9% Normal Saline 100 ML IV (10:18)
[2018-06-07] MEDS: Lidocaine Jelly 2% 20 ML Syringe (URO-JET) 20 APPLIC (10:25)
--- NOTE | 2018-06-07 10:42 | PCM.OPRPT ---
Report of Operation Date of Procedure: 06/07/18 Pre-Operative Diagnosis: Right hydronephrosis and right stent placement Post-Operative Diagnosis: Same. Surgery/Procedure Performed:: Cystoscopy and right retrograde pyelogram and right stent placement, new stent Description of Surgical Findings:: 63-year-old female taken back to the operating room at the smooth induction of MAC local she was placed supine on the table went into the bladder with a 21 Malaysian rigid cystourethroscope grabbed the existing stent pulled out the meatus advanced a wire up into the right kidney then advanced a Pollack catheter over the wire performed a retrograde pyelogram and there was dilation of the right kidney down to an area of stricturing and narrowing the proximal right ureter peers is still have obstruction of the right kidney on retrograde pyelograms so I advanced a wire up left the wire in place and all the wire advanced a new stent 6 Malaysian by 24 cm stent once a stent was in good position and pulled the wire the stent coiled in the kidney bladder good position bladder was empty patient's anesthetic was reversed she is taken back to PACU in good condition. Type of Anesthesia:: Local MAC Drains: stent left side - Admit VTE Documentation VTE Present on Admission: No VTE Mechan Device Prophylaxis: SCD's VTE Pharm Prophylaxis ordered?: No Reason prophylaxis not ordered:: Treatment Not Indicated
--- NOTE | 2018-06-07 10:45 | DCINST_ITS ---
Discharge Diet: No Restrictions, Light diet - advance as tolerated Discharge Activity: Return to Normal Activity Allergies/Adverse Reactions: Allergies Iodinated Contrast- Oral and IV Dye [CONTRASTS] Allergy (Verified 06/05/18 10:29 ) Anaphylaxis nickel [Nickel] Allergy (Verified 06/05/18 10:29) Rash codeine Adverse Reaction (Verified 06/05/18 10:29) Nausea/Vom/Diarrhea Medications to take at Discharge Calcium Carbonate [Calcium] 600 mg PO DAILY 01/26/18 Metoprolol Succinate [Toprol Xl] 25 mg PO DAILY 01/26/18 Nitroglycerin [Nitrostat] 0.4 mg SUBLINGUAL Q5M PRN 01/26/18 Simvastatin [Zocor] 40 mg PO QHS 01/26/18 aspirin 81 mg tablet,delayed release 81 mg PO DAILY tab 02/05/18 Ibuprofen [Motrin] 200 mg PO Q4H PRN PRN 03/11/18 Sertraline HCl [Zoloft] 50 mg PO DAILY 03/11/18 Primary Care Physician: Aston Cruz DO [Primary Care Provider] - Test Results: Test results from this visit will be discussed in further detail at your follow- up appointment, if applicable. Please Follow Up With: Law Sidhu MD When: in 6 weeks, please call to make an appointment.
== END 2018-06-07 12:06 | disposition home or self-care (01) ==
LOC: SDC 07:20 → AC 07:21
PROVIDERS: Family Provider Student in an Organized Health Care Education/Training Program; PCP Student in an Organized Health Care Education/Training Program; Visit Provider Urology
PROC: (CPT 52332; principal; 2018-06-07 09:25)
DX: N13.1 Hydronephrosis with ureteral stricture, not elsewhere classified (principal); C18.9 Malignant neoplasm of colon, unspecified; I10 Essential (primary) hypertension; E78.00 Pure hypercholesterolemia, unspecified; F41.9 Anxiety disorder, unspecified; Z79.82 Long term (current) use of aspirin; Z79.899 Other long term (current) drug therapy; Z78.0 Asymptomatic menopausal state; I25.2 Old myocardial infarction; Z87.19 Personal history of other diseases of the digestive system; Z98.51 Tubal ligation status; Z90.49 Acquired absence of other specified parts of digestive tract; Z95.1 Presence of aortocoronary bypass graft
CPT/HCPCS: 52332; 76000; J7120; A4216; C1769; C2617; J2405

== ENCOUNTER 2018-08-05 07:37 | Emergency (ER) | payer MEDICAID, SELFPAY ==
[2018-08-05 07:38] VITALS: BP 141/69; PULSE 94; RESP 17; TEMP 37.2; O2SAT 100; BMI 20.7
--- NOTE | 2018-08-05 07:49 | EKG12_ITS ---
Test Reason : DIZZINESS Blood Pressure : / mmHG Vent. Rate : 080 BPM Atrial Rate : 080 BPM P-R Int : 166 ms QRS Dur : 120 ms QT Int : 402 ms P-R-T Axes : 056 077 016 degrees QTc Int : 463 ms Normal sinus rhythm Right bundle branch block Abnormal ECG Confirmed by DEBBIE RODIRGUEZ, ALLISON ([id number]), communications editor KARLY KELLEY ([id number]) on 08/07/2018 1:37:55 PM Referred By: SAM Confirmed By:ALLISON LEWIS MD
--- NOTE | 2018-08-05 07:51 | ED.VISSUMM ---
- ER Visit Summary Date of Service: 08/05/18 Chief Complaint: [fatigue] History of Present Illness: The patient is a 63 F [that presents with fatigue and generalized weakness over the past several days. She has a history of prior colon cancer with reported newer diagnosis of gastric cancer and received last chemotherapy treatment last Sunday. No reported fever. states she has not been eating or drinking. She has painful ulcerations on her tongue. Patient denies any pain. She denies any abdominal pain or vomiting. She appears drowsy but answers questions and follows commands without difficulty. She has no other complaints.] Physical Examination: [General: The patient appears in no apparent distress. Patient is resting comfortably on cart. Skin: Warm, dry, no pallor noted. No rash. Shannan type lesions on tongue. Head: Normocephalic, atraumatic Neck: Supple, nontender. Eye: PERRLA, EOMI ENT: Dry mucus membranes, pharynx within normal limits other than shannan type lesions on tongue Cardiovascular: Regular Rate and Rhythm, no gallups or rubs Respiratory: Patient is in no distress, no accessory muscle use, lungs are clear to auscultation, no wheezing, rales or rhonchi Musculoskeletal: normal ROM, no deformity, no tenderness, no swelling. 2+ radial and DP pulses symmetric. GI: No tenderness to palpation, no masses appreciated. No rebound, guarding, or rigidity noted. Neurological: A&O, normal strength and sensation. GCS 15. Psychiatric: Cooperative] Test Results: [Patient has mild pancytopenia with a white blood cell count of 3.2, hemoglobin 8.8, and platelets of 93. Bilirubin and alkaline phosphatase were only mildly elevated. Urinalysis not consistent with infection. ABG showed a pH of 7.4 with PCO2 of 37 and PO2 of 82. Blood glucose test [id number] was normal. Lactate was 1.7. Chest x-ray shows no infiltrate, otherwise chronic findings.] Emergency Department Course and Treatment: [Patient was given IV hydration here and on reevaluation states she feels much better. On initial evaluation she was drowsy but currently she is awake and alert. She remains afebrile with normal vital signs. She denies any pain. She does have evidence of possible Shannan on her tongue as well as stomatitis. I discussed evaluation with patient and her results here. She is requesting to go home and follow-up with her oncologist. I spoke with Dr. Jones who is agreeable with treatment with medication for her oral Shannan and stomatitis and she will be instructed to call the office in the next 1-2 days for close follow-up and return with any new or worsening symptoms. Patient and family understand and are agreeable with this plan of care. Blood and urine cultures were sent. Patient was discharged home in stable and improved condition.] Treatment Plan: [see above] Disposition: [discharge home, stable and improved condition] Impression: [Mild Dehydration - improved, Fatigue, Oral Stomatitis ] This note was generated with [employer]fix dictation software. It may contain incorrect words, spelling, and punctuation that were not noted in review of the chart prior to signing ED Disposition - Plan for ED Patient: Disposition: Home or Assisted Living Chief Complaint: Dizziness Instructions: Dehydration, Mouth Care During Chemotherapy Prescriptions: Nystatin 500,000 unit PO TID 5 Days #1 bottle Magic Mouth Wash 10 ml PO 4X/DAY PRN 5 Days #200 ml PRN Reason: Oral Lesions Pain Referrals: Aston Cruz DO [Primary Care Provider] - Loli Nash MD [STAFF PHYSICIAN] -
[2018-08-05 08:26] LABS: Base Excess 2 mmol/L (-2 to +2); Bicarbonate 26.2 mmol/L (22-26); Blood Gas Specimen Type ART; O2 Delivery Device Room Air; PO2 82 mmHG (75-100); SITE L Radial; SO2 97 % (95-99); Time Given 821; Total Carbon Dioxide 27 mmol/L; pCO2 37.2 mmHg (35-45); pH 7.46 (7.35-7.45)
[2018-08-05] MEDS: 0.9% Normal Saline 1,000 ML 1000 ML IV (08:30)
[2018-08-05 08:40] LABS: Bedside Glucose 110 mg/dL (70-110)
[2018-08-05 08:46] LABS: AST(SGOT) 20 U/L (15-37); Alanine Aminotransfer ALT/SGPT 20 U/L (13-56); Albumin, Serum 2.8 g/dL (3.2-5.0); Alkaline Phosphatase 184 U/L (45-117); Anion Gap 12 (5-15); BUN 12 mg/dL (7-18); BUN/Creat Ratio 15.9 RATIO (10-20); Basophil# 0.01 X10^3/uL; Calcium,Total 8.5 mg/dL (8.5-10.1); Chloride 103 mmol/L (98-107); Creatinine, Serum 0.75 mg/dL (0.55-1.02); EST Glomerular Filtration Rate 82 mL/min (>60); Eosinophil# 0.02 X10^3/uL; Est Glom Filt Rate - Afr Amer 99 mL/min (>60); Estimated Creatinine Clearance 52.09 ml/min; Globulin 2.9 g/dL (2.2-4.2); Glucose 118 mg/dL (74-106); Hemoglobin 8.8 g/dl (12.0-15.0); Lipase 97 U/L (73-393); Mean Corp Hgb Conc 32.6 g/gl (32-36); Mean Corpuscular Hgb 34.9 pg (27.0-32.0); Mean Corpuscular Volume 107.1 fL (81-99); Mean Platelet Vol. 9.9 fl (6.2-12.0); Monocyte# 0.13 X10^3/uL; Platelet Count 93 K/mm3 (150-450); Potassium 3.7 mmol/L (3.5-5.1); Protein, Total 5.7 g/dL (6.4-8.2); RBC Distribution Width SD 66.8 fl (35.1-43.9); Red Blood Count 2.52 M/mm3 (4.2-5.4); Sodium Level 142 mmol/L (136-145); White Blood Count 3.2 K/mm3 (4.4-11.0)
[2018-08-05 08:52] LABS: Differential Indicated SCAN CRITERIA MET; POSITIVE COUNT NO; POSITIVE DIFFERENTIAL YES; POSITIVE MORPHOLOGY YES
[2018-08-05 08:55] LABS: Lactic Acid 1.7 mmol/L (0.4-2.0)
[2018-08-05 09:00] LABS: Bacteria 0 SEEN /hpf (None Seen); Mucous, Urine 0 SEEN /hpf (<or=2+)
[2018-08-05 09:20] LABS: Glucose, Dipstick Normal (Normal); Ketone-Dipstick Negative (Negative); Leukocyte Esterase-Dipstick 25 /ul (Negative); Nitrite-Dipstick Negative (Negative); Occult Blood-Urine 25 /ul (Negative); Protein-Dipstick 15 mg/dl (Negative); Specific Gravity, Urine 1.005 (1.002-1.030); Urine Bilirubin Dipstick Negative (Negative); Urine Urobilinogen Normal (Normal)
[2018-08-05 09:21] LABS: Color, Urine Yellow (Yellow); Urine Clarity Sl Cloudy (Clear)
[2018-08-05 09:28] LABS: Red Blood Cells-Urine 0-5 SEEN /hpf (0-5); Squamous Epithelial Cells - UA 0-5 SEEN /hpf (5-10); White Blood Cells 0-5 SEEN /hpf (0-5)
[2018-08-05 09:53] LABS: Eosinophil 2 % (0-5); Lymphocyte 9 % (19-41); Metamyelocyte 11 % (0-1); Monocyte 3 % (0-10); Myelocyte 1 (0-0); Neutrophil-Band 13 % (0-5); Neutrophil-Segmented 61 % (47-70); Total Cells Counted 100 (MANUAL DIFF)
[2018-08-05 09:55] LABS: Ovalocyte RARE; Scan Smear per Review Criteria MANUAL DIFF
[2018-08-05 09:57] LABS: Absolute Neutrophil Count 2.4 X10^3/uL (2.0-7.7)
[2018-08-05 09:58] LABS: Absolute Lymphocyte Count 0.28 X10^3/ul (0.83-4.51)
[2018-08-05 10:14] VITALS: BP 123/46; PULSE 74; RESP 18; O2SAT 100
[2018-08-06 15:11] LABS: Pathologist Review Reviewed
== END 2018-08-05 10:38 | disposition home or self-care (01) ==
PROVIDERS: Emergency Provider Emergency Medicine; Family Provider Student in an Organized Health Care Education/Training Program; PCP Student in an Organized Health Care Education/Training Program
DX: E86.0 Dehydration (principal); K12.0 Recurrent oral aphthae; C16.9 Malignant neoplasm of stomach, unspecified; D61.818 Other pancytopenia; I45.10 Unspecified right bundle-branch block; Z79.899 Other long term (current) drug therapy; Z85.038 Personal history of other malignant neoplasm of large intestine
CPT/HCPCS: 36415; 36591; 36600; 71045; 80053; 81001; 82803; 82962; 83605; 83690; 85025; 87040; 87086; 87149; 93005; 96360; 96361; 99283; J7030; J7040; A4216

== ENCOUNTER 2018-10-04 10:00 | Emergency (ER) | payer MEDICAID, SELFPAY ==
[2018-10-04 10:02] VITALS: BP 159/106; PULSE 89; RESP 18; TEMP 36.7; O2SAT 100; BMI 20.5
--- NOTE | 2018-10-04 10:18 | EKG12_ITS ---
Test Reason : DIZZINESS Blood Pressure : / mmHG Vent. Rate : 076 BPM Atrial Rate : 076 BPM P-R Int : 168 ms QRS Dur : 112 ms QT Int : 434 ms P-R-T Axes : 063 071 041 degrees QTc Int : 488 ms Sinus rhythm with frequent Premature ventricular complexes Right bundle branch block Abnormal ECG Confirmed by DEDRICK SANCHEZ ([id number]), editorial cartoonist KARLY KELLEY ([id number]) on 10/07/2018 2:06:27 PM Referred By: FRANSISCA Confirmed By:DEDRICK SANCHEZ
[2018-10-04 10:55] LABS: Absolute Lymphocyte Count 0.95 X10^3/ul (0.83-4.51); Absolute Neutrophil Count 3.6 X10^3/uL (2.0-7.7); Basophil# 0.04 X10^3/uL; Basophil% 0.7 % (0-1); Eosinophil# 0.48 X10^3/uL; Eosinophils% 7.8 % (0-5); Hemoglobin 10.2 g/dl (12.0-15.0); Lymphocyte # 0.95 X10^3/ul (4.0); Lymphocyte % 15.5 % (19-41); Mean Corpuscular Hgb 32.2 pg (27.0-32.0); Mean Corpuscular Volume 107.3 fL (81-99); Mean Platelet Vol. 9.3 fl (6.2-12.0); Monocyte% 17.9 % (0-10); Neutrophil # 3.55 X10^3/uL (2.7-7.7); Neutrophil % 57.8 % (47-70); Platelet Count 227 K/mm3 (150-450); RBC Distribution Width CV 15.8 % (11.6-14.6); RBC Distribution Width SD 62.4 fl (35.1-43.9); Red Blood Count 3.17 M/mm3 (4.2-5.4); White Blood Count 6.1 K/mm3 (4.4-11.0)
[2018-10-04 10:56] LABS: POSITIVE COUNT NO; POSITIVE DIFFERENTIAL NO; POSITIVE MORPHOLOGY NO
[2018-10-04 11:00] LABS: ALB/GLOB Ratio 0.9 RATIO (0.9-2.4); AST(SGOT) 22 U/L (15-37); Alanine Aminotransfer ALT/SGPT 20 U/L (13-56); Alkaline Phosphatase 181 U/L (45-117); Anion Gap 8 (5-15); BUN 9 mg/dL (7-18); BUN/Creat Ratio 14.6 RATIO (10-20); Calcium,Total 8.7 mg/dL (8.5-10.1); Chloride 106 mmol/L (98-107); Creatinine, Serum 0.62 mg/dL (0.55-1.02); EST Glomerular Filtration Rate 103 mL/min (>60); Est Glom Filt Rate - Afr Amer 125 mL/min (>60); Estimated Creatinine Clearance 62.36 ml/min; Globulin 3.5 g/dL (2.2-4.2); Glucose 85 mg/dL (74-106); Lipase 58 U/L (73-393); Potassium 3.6 mmol/L (3.5-5.1); Protein, Total 6.5 g/dL (6.4-8.2); Sodium Level 139 mmol/L (136-145)
[2018-10-04] MEDS: 0.9% Normal Saline 1,000 ML 1000 ML IV (11:32)
[2018-10-04] MEDS: Ondansetron 4 MG/2 ML Vial IV (11:33)
[2018-10-04] MEDS: Morphine 4 MG/ML Syringe IV (11:33)
[2018-10-04 12:05] VITALS: BP 147/75; BP 149/53; BP 158/67; PULSE 76; PULSE 78; PULSE 85
[2018-10-04 12:16] VITALS: BP 117/56; PULSE 76; RESP 17; O2SAT 99
--- NOTE | 2018-10-04 12:27 | ED.DCSUM_ITS ---
- ER Visit Summary Date of Service: 10/04/18 Chief Complaint: Lightheaded History of Present Illness: The patient is a [address] Cruz and Dr. Nash. She reports that she has metastatic colon cancer and her last dose of chemotherapy was 5 weeks ago. She reports that there is no further treatment available for her. States that proximal 15 minutes ago she became lightheaded. She reports is increased when she stands. She has not passed out. She reports that she has chronic abdominal pain that is unchanged. It is 4 out of 10 in severity. She has nausea and has vomited once today. She does report there is a small amount of blood. However, she reports that this not unusual with her cancer. She denies any diarrhea. Her last bowel was yesterday. No melena or hematochezia. No fever, chest pain, cough, shortness of breath. Physical Examination: Vitals: Stable. Afebrile. General: Well-developed, but cachectic. Head: Normocephalic atraumatic. Neck: Supple, no lymphadenopathy. No JVD. Nontender. Cardiovascular: Regular rate and rhythm. No murmurs. Respiratory: No respiratory distress. Clear to auscultation bilaterally. Abdominal: Soft, moderate epigastric tenderness to palpation, nondistended, normal bowel sounds. No guarding, rebound, or peritoneal signs. Back: Nontender. Extremities: Nontender, no edema. Skin: Normal color, no rash. Neurologic: Alert and oriented ?3. Cranial nerves II through XII are intact. Normal strength and sensation. Psych: Normal affect. Test Results: EKG is sinus at 76 with PVCs and a right bundle branch block. Its unchanged from July of this year other than the PVCs. CBC is more for an H&H 10.2 and 34.0, lymphocytes 16, monocytes of 18, eosinophils of 8. Chem-7 is normal. LFTs marked for an albumin 3.0 and alk phos of 181. Lipase is normal. Emergency Department Course and Treatment: Patient was treated with a dose of morphine and Zofran IV. She was given a liter of normal saline and feels much improved. Treatment Plan: Patient would like to go home. Liam has pain medications at home. She will be discharged with Zofran. Instructed to follow-up with Dr. Bey and/or Dr. Cruz in 1 day if not improving. Return to the emergency department for any worsening symptoms. Disposition: To home in improved and stable condition. Impression: 1. Metastatic colon cancer. 2. Vomiting. 3. PVCs. This note was generated with [employer] dictation software. It may contain incorrect words, spelling, and punctuation that were not noted in review of the chart prior to signing ED Disposition - Plan for ED Patient: Disposition: Home or Assisted Living Chief Complaint: Dizziness Instructions: ED Dehydration Prescriptions: Ondansetron [Zofran Odt] 4 mg PO Q8H PRN PRN #10 tablet PRN Reason: Nausea Referrals: Aston Cruz DO [Primary Care Provider] - 1-2 Days if not improving Loli Nash MD [STAFF PHYSICIAN] - 1-2 Days if not improving
[2018-10-04 12:35] VITALS: BP 129/60; PULSE 81; RESP 15; O2SAT 100
== END 2018-10-04 13:03 | disposition home or self-care (01) ==
LOC: ED 10:27
PROVIDERS: Emergency Provider Emergency Medicine; Family Provider Student in an Organized Health Care Education/Training Program; PCP Student in an Organized Health Care Education/Training Program
DX: C18.9 Malignant neoplasm of colon, unspecified (principal); C79.9 Secondary malignant neoplasm of unspecified site; R11.2 Nausea with vomiting, unspecified; I49.3 Ventricular premature depolarization; I45.10 Unspecified right bundle-branch block; R10.9 Unspecified abdominal pain; G89.29 Other chronic pain; I25.10 Atherosclerotic heart disease of native coronary artery without angina pectoris; I10 Essential (primary) hypertension; Z79.899 Other long term (current) drug therapy; Z95.1 Presence of aortocoronary bypass graft
CPT/HCPCS: 36591; 80053; 83690; 85025; 93005; 96374; 96375; 99284; J7030; A4216; J2405

== ENCOUNTER 2019-03-30 10:14 | Emergency (ER) | payer MEDICARE, SELFPAY ==
[2019-03-30 10:16] VITALS: BP 151/59; PULSE 98; RESP 18; TEMP 36.8; O2SAT 100; BMI 22.1
--- NOTE | 2019-03-30 10:36 | EKG12_ITS ---
Test Reason : CP Blood Pressure : / mmHG Vent. Rate : 092 BPM Atrial Rate : 092 BPM P-R Int : 140 ms QRS Dur : 114 ms QT Int : 400 ms P-R-T Axes : 046 064 027 degrees QTc Int : 494 ms Sinus rhythm with frequent Premature ventricular complexes in a pattern of bigeminy Possible Left atrial enlargement Right bundle branch block Abnormal ECG Confirmed by DEBBIE RODRIGUEZ, ALLISON ([id number]), acquisition editor DELFINA JAVIER ([id number]) on 04/01/2019 1:29:53 PM Referred By: CLARIBEL Confirmed By:ALLISON LEWIS MD
--- NOTE | 2019-03-30 10:36 | RAD_ITS ---
STUDY: X-RAY CHEST REASON FOR EXAM: Female, 64 years old. Chest pain, patient states she has stomach cancer. TECHNIQUE: Single portable frontal chest. COMPARISON: August 05, 2018. FINDINGS: The right Mediport has been removed over the comparison interval. The lungs are clear and expanded. There is no pleural effusion. There is no pneumothorax. Sternal cerclage wires and vascular clips are present from a prior sternotomy and coronary artery bypass graft procedure (CABG). There is no demonstrated mediastinal lymphadenopathy or mediastinal mass lesion. Normal visualized pulmonary arteries. There is atherosclerotic calcification of the aortic arch with tortuosity. Again seen is mild diffuse demineralization without evident acute osseous abnormality. There is no demonstrated abnormality of the visualized soft tissue structures of the upper abdomen. RAD/Chest 1 View (Portable) IMPRESSION: Removal of the right IJ Mediport over the comparison interval. Otherwise, the exam appears stable without evident acute cardiopulmonary disease. Status post CABG. Atherosclerotic peripheral vascular disease. Upon further review, there appears to be a small ovoid calcific/ossific density within the lateral right posterior seventh-eighth rib interspace overlying the lateral aspect of the anterior right fifth rib. This finding may represent callus from prior rib fracture. However, mildly expansile blastic metastasis can also present in this fashion. Consider further evaluation with dedicated rib series. Electronically Signed: Jovanny Doran MD at 10:59 EDT , Service support ,
[2019-03-30 10:48] LABS: Hematocrit 48.3 % (37-47); Hemoglobin 16.3 g/dl (12.0-15.0); Mean Corp Hgb Conc 33.7 g/gl (32-36); Mean Corpuscular Hgb 31.3 pg (27.0-32.0); Mean Corpuscular Volume 92.9 fL (81-99); Mean Platelet Vol. 9.7 fl (6.2-12.0); Platelet Count 306 K/mm3 (150-450); RBC Distribution Width CV 19.1 % (11.6-14.6); RBC Distribution Width SD 65.2 fl (35.1-43.9); White Blood Count 9.1 K/mm3 (4.4-11.0)
[2019-03-30 10:49] LABS: POSITIVE COUNT YES; POSITIVE DIFFERENTIAL NO; POSITIVE MORPHOLOGY YES
--- NOTE | 2019-03-30 10:53 | NURSING ---
CHEMISTRIES HEMOLIZED
[2019-03-30 11:03] LABS: Differential Indicated MANUAL DIFF
[2019-03-30 11:06] LABS: Lymphocyte 6 % (19-41); Metamyelocyte 3 % (0-1); Monocyte 1 % (0-10); Myelocyte 3 (0-0); Neutrophil-Band 3 % (0-5); Neutrophil-Segmented 84 % (47-70); Nucleated Red Bld Cells,Manual 1 % (0-5); Platelet Estimate ADEQUATE (ADEQ)
[2019-03-30 11:07] LABS: Red Cell Morphology NORM C+C NORMAL (NORM C&C); Scan Smear per Review Criteria MANUAL DIFF
[2019-03-30 11:08] LABS: Absolute Lymphocyte Count 0.54 X10^3/ul (0.83-4.51); Absolute Neutrophil Count 7.9 X10^3/uL (2.0-7.7); Lymphocyte # 0.54 X10^3/ul (4.0)
[2019-03-30] MEDS: Aspirin 81 MG TAB.CHEW 324 MG PO (11:10)
[2019-03-30] MEDS: 0.9% Normal Saline 1,000 ML 150 ML IV (11:10)
[2019-03-30 11:14] VITALS: BP 138/51; PULSE 80; RESP 23; O2SAT 100
--- NOTE | 2019-03-30 11:17 | ED.VISSUMM ---
- ER Visit Summary Date of Service: 03/30/19 Chief Complaint: [Chest pain] History of Present Illness: The patient is a 64 F [presents to the emergency department complaint of chest discomfort that started about 15 to 20 minutes ago. Patient states the pain was in her right chest and was sharp and stabbing. Patient states that she took one nitroglycerin tablet at home and it seemed to help the pain. She is currently pain-free. Patient has history of coronary artery disease with three-vessel CABG remote. Patient currently on hospice due to history of stomach cancer. She is no longer under care of oncology as she was told there was nothing more they could do for her. Patient denies any fever or cough. She denies recent travel or surgery. Patient states that her pain is somewhat what she experienced when she was having heart issues.] Physical Examination: [HEENT-PERRLA, EOMI. Cranial nerves II through XII grossly intact. TMs clear. Mucous membranes moist. No adenopathy. Cardiovascular-regular rate and rhythm without murmur or ectopy Lungs-clear to auscultation, chest wall stable without crepitus or subcu emphysema Abdomen-normoactive bowel sounds, soft. She has some mild diffuse tenderness. There is no rebound, rigidity, or perineal signs. Extremities-intact ?4, normal range of motion, normal pulses, atraumatic] Test Results: [EKG obtained arrival shows sinus rhythm with a ventricular rate of 92 bpm with frequent ectopy in a bigeminy pattern.] CBC with differential 9.1, hemoglobin 16, hematocrit 48, placed 306. Chemistries unremarkable. Troponin is less than 1015. Chest x-ray showed questionable blastic lesion right fifth rib. Emergency Department Course and Treatment: [Patient initially received aspirin.] Treatment Plan: [I had a long discussion with patient and her family. They understand I cannot rule out coronary artery disease as the etiology of her chest pain. Patient is currently on hospice and she states the only reason she came in is that she could not get a hold of hospice. Patient does not want further evaluation including stress test or heart catheterization. Patient is requesting to go home. Patient has been pain-free in the emergency department. Her chest pain was atypical. Patient understands she may return to the ER anytime for worsening symptoms.] Disposition: [Discharged home in stable condition] Impression: [Atypical chest pain-etiology uncertain.] This note was generated with [employer] dictation software. It may contain incorrect words, spelling, and punctuation that were not noted in review of the chart prior to signing ED Disposition - Plan for ED Patient: Referrals: Care Physician,No Primary [Primary Care Provider] -
[2019-03-30 11:34] LABS: Anion Gap 6 (5-15); BUN 23 mg/dL (7-18); BUN/Creat Ratio 23.9 RATIO (10-20); Calcium,Total 8.8 mg/dL (8.5-10.1); Chloride 103 mmol/L (98-107); Creatinine, Serum 0.96 mg/dL (0.55-1.02); EST Glomerular Filtration Rate 62 mL/min (>60); Est Glom Filt Rate - Afr Amer 75 mL/min (>60); Estimated Creatinine Clearance 44.27 ml/min; Glucose 144 mg/dL (74-106); Sodium Level 137 mmol/L (136-145)
--- NOTE | 2019-03-30 11:58 | ED.DEP ---
ED Disposition - Plan for ED Patient: Instructions: ED Chest Pain Atypical Unkn Cause Referrals: Care Physician,No Primary [Primary Care Provider] - 3-5 Days
[2019-03-30 12:12] VITALS: BP 121/53; PULSE 77; RESP 16; O2SAT 100
[2019-03-31 12:57] LABS: Pathologist Review Reviewed
== END 2019-03-30 12:13 | disposition home or self-care (01) ==
PROVIDERS: Emergency Provider Emergency Medicine
DX: R07.89 Other chest pain (principal); I25.10 Atherosclerotic heart disease of native coronary artery without angina pectoris; I10 Essential (primary) hypertension; I49.3 Ventricular premature depolarization; I45.10 Unspecified right bundle-branch block; Z85.028 Personal history of other malignant neoplasm of stomach; Z95.1 Presence of aortocoronary bypass graft
CPT/HCPCS: 71045; 80048; 84484; 85025; 93005; 99284; A4216

== ENCOUNTER → 2019-04-25 10:36 | Outpatient (CLI) | payer MEDICARE, SELFPAY ==
[2019-03-30 10:16] VITALS: BMI 22.1
--- NOTE | 2019-04-25 11:14 | RAD_ITS ---
STUDY: X-RAY - RIGHT FOOT CLINICAL: Female, 64 years old. Her right foot pain TECHNIQUE: 3 view(s) of the foot. COMPARISON: None. FINDINGS: There is no evidence of fracture or dislocation. There are no significant degenerative changes. There are no radiodense foreign bodies. RAD/Foot min 3 Views IMPRESSION: No fracture or dislocation. Electronically Signed: Fredrick Figueroa, at 17:24 EDT Tel , Service support ,
== END ==
PROVIDERS: Referring Provider Nurse Practitioner Family; Visit Provider Nurse Practitioner Family
DX: M25.571 Pain in right ankle and joints of right foot (principal)
CPT/HCPCS: 73630

== ENCOUNTER → 2019-05-22 11:46 | Outpatient (CLI) | payer MEDICARE, SELFPAY ==
[2019-05-22 12:05] LABS: Mucous, Urine 0 SEEN /hpf (<or=2+); Squamous Epithelial Cells - UA 0 SEEN /hpf (5-10)
[2019-05-22 13:27] LABS: Color, Urine Yellow (Yellow); Glucose, Dipstick Normal (Normal); Ketone-Dipstick Negative (Negative); Leukocyte Esterase-Dipstick 500 /ul (Negative); Nitrite-Dipstick Negative (Negative); Occult Blood-Urine 250 /ul (Negative); Protein-Dipstick 100 mg/dl (Negative); Urine Bilirubin Dipstick Negative (Negative); Urine Clarity Sl. Cloudy (Clear); Urine Urobilinogen 1 mg/dl (Normal)
[2019-05-22 13:40] LABS: Bacteria 1+ /hpf (None Seen); Calcium Oxalate Crystals Ur 1+ /hpf (<or=2+); Red Blood Cells-Urine > 100 SEEN /hpf (0-5); White Blood Cells 50-100 SEEN /hpf (0-5)
== END ==
PROVIDERS: Referring Provider Nurse Practitioner Adult Health
DX: N39.0 Urinary tract infection, site not specified (principal)
CPT/HCPCS: 81001; 87086; 87088

== ENCOUNTER → 2019-05-26 15:25 | Outpatient (CLI) | payer MEDICARE, SELFPAY | PROVIDERS: Family Provider Student in an Organized Health Care Education/Training Program; PCP Student in an Organized Health Care Education/Training Program; Referring Provider Urology; Visit Provider Urology | DX: R82.998 Other abnormal findings in urine (principal) | CPT/HCPCS: 87086 ==

== ENCOUNTER 2019-05-28 08:25 | Day surgery (SDC) | payer SELFPAY ==
[2019-05-28] VITALS (7 sets, daily range): BP systolic 138–155; BP diastolic 47–63; PULSE 42–91; RESP 16–18; TEMP 36.1–36.9; O2SAT 97–100; BMI 21.6
[2019-05-28] MEDS: Cefazolin 2 GM in 0.9% Normal Saline 100 ML IV (10:45)
--- NOTE | 2019-05-28 11:05 | DCINST_ITS ---
Discharge Diet: Light diet - advance as tolerated Discharge Activity: Return to Normal Activity Suture Line Care: Avoid Pulling/Pushing, Avoid Pinching/Bending Allergies/Adverse Reactions: Allergies Iodinated Contrast- Oral and IV Dye [CONTRASTS] Allergy (Verified 05/28/19 08:40) Anaphylaxis nickel [Nickel] Allergy (Verified 05/28/19 08:40) Rash codeine Adverse Reaction (Verified 05/28/19 08:40) Nausea/Vom/Diarrhea Medications to take at Discharge Ciprofloxacin [Cipro] 250 mg PO BID 05/27/19 Dexamethasone [Decadron] 4 mg PO DAILY@0800 05/27/19 Lorazepam [Ativan] 0.5 mg PO BID 05/27/19 Methadone HCl [(None)] 5 mg PO LUNCH 05/27/19 Methadone HCl [(None)] 5 mg PO QHS 05/27/19 Methadone HCl [(None)] 7.5 mg PO DAILY 05/27/19 Oxycodone [Oxyir] 5 mg PO BID 05/27/19 Primary Care Physician: Aston Cruz DO [Primary Care Provider] - Test Results: Test results from this visit will be discussed in further detail at your follow- up appointment, if applicable. Please Follow Up With: Law Sidhu MD When: in 2 weeks, please call to make an appointment.
--- NOTE | 2019-05-28 11:07 | OP.PCM_ITS ---
Report of Operation Date of Procedure: 05/28/19 Pre-Operative Diagnosis: History of colon cancer with obstruction of the right kidney has a stent in place it has been due for change has significant urinary symptoms because a stent is now encrusted and causing her significant pain and discomfort. Post-Operative Diagnosis: The same Surgery/Procedure Performed:: Cystoscopy, left retrograde pyelogram, interpretation fluoroscopic images, left stent change Description of Surgical Findings:: 64-year-old female taken back to the operating room after smooth induction of general anesthesia she is placed in dorsolithotomy position, the urethra and vaginal area prepped and draped in usual sterile fashion, went into the bladder with a 21 Italian rigid cystourethroscope grabbed existing stent pulled out the meatus, attempted to place a wire through the stent however the stent was completely encrusted and the wire would not go through the left a stent in place went next to the stent with the cystoscope use the Pollick catheter and a Glidewire and was able to cannulate the ureter and advanced the wire and a Pollack catheter next the stent all the way up to the kidney I then pulled out the rigid residual stent performed a retrograde pyelogram to see contrast filling the kidney has a distended hydronephrotic kidney, we then coiled the wire in the kidney and over the wire backed out the ureteral catheter and advanced a new stent is a 6 Italian by 22 cm stent. Once the stent was in good position then I drained the bladder, patient acetic was reversed. She was taken back to PACU in good condition. Type of Anesthesia:: General Drains: 6 fr x 22cm stent Right. - Admit VTE Documentation VTE Present on Admission: No VTE Mechan Device Prophylaxis: SCD's
== END 2019-05-28 12:16 | disposition home or self-care (01) ==
LOC: SDC 08:27 → AC 08:28
PROVIDERS: Family Provider Student in an Organized Health Care Education/Training Program; PCP Student in an Organized Health Care Education/Training Program; Referring Provider Urology; Visit Provider Urology
PROC: (CPT 52332; principal; 2019-05-28 10:45)
DX: Z46.6 Encounter for fitting and adjustment of urinary device (principal); Z85.038 Personal history of other malignant neoplasm of large intestine; N13.1 Hydronephrosis with ureteral stricture, not elsewhere classified; E78.00 Pure hypercholesterolemia, unspecified; F41.9 Anxiety disorder, unspecified; Z79.899 Other long term (current) drug therapy; Z79.82 Long term (current) use of aspirin; I10 Essential (primary) hypertension
CPT/HCPCS: 52332; 76000; J7120; C1769; C2625; J2405